=== PATIENT | male | born 1930 | race Caucasian/White ===

== ENCOUNTER 2016-06-22 15:54 | Observation (INO) | payer MEDICARE, BC ==
[2016-06-22] MEDS ORDERED: IPRATROPIUM-ALBUTEROL 3 ML NEB INHALATION STA (16:09)
[2016-06-22] MEDS ORDERED: methylPREDNISolone SOD SUCCI 125 MG/2 ML VIAL IV STA (16:09)
[2016-06-22] MEDS ORDERED: SODIUM CHLORIDE 0.9% 1,000 ML IV STA (16:09)
--- NOTE | 2016-06-22 16:15 | ED ---
SOB HPI - General Chief Complaint: Shortness of Breath Stated Complaint: SOB, Weakness Time Seen by Provider: 06/22/16 16:00 Source: patient, EMS, RN notes reviewed Mode of arrival: EMS Limitations: no limitations - History of Present Illness Initial Comments: This is a 86-year-old male who is brought in by EMS for evaluation for shortness of breath and weakness. He states he has been short of breath for about a week or so no reported fevers chills or sweats chest pain he does have a PEG tube and does not take nourishment by mouth. He has a phlegm production. MD Complaint: shortness of breath - Related Data Home Medications Medication Instructions Recorded Confirmed Montelukast [Singulair] 10 mg PO DAILY 12/13/14 06/22/16 Ascorbic Acid [Vitamin C] 500 mg PO DAILY 08/17/15 06/22/16 Fluticasone/Salmeterol [Advair 1 puff INHALATION RT-BID 10/28/15 06/22/16 250-50 Diskus] Aspirin 325 mg PO DAILY 06/22/16 06/22/16 Lisinopril [Zestril] 2.5 mg PO DAILY 06/22/16 06/22/16 Metoclopramide [Reglan] 5 mg PO ACHS 06/22/16 06/22/16 Mirtazapine [Remeron] 7.5 mg PO HS 06/22/16 06/22/16 Warfarin Sodium [Coumadin] 2 mg PO [id number] 06/22/16 06/22/16 Warfarin Sodium [Coumadin] 4 mg PO SUTH 06/22/16 06/22/16 predniSONE 2.5 mg PO DAILY 06/22/16 06/22/16 Previous Rx's Medication Instructions Recorded Ipratropium-Albuterol Nebulize 3 ml INHALATION RT-QID ampul.neb 01/25/16 [Duoneb 0.5 mg-3 mg/3 ml Soln] Allergies Allergy/AdvReac Type Severity Reaction Status Date / Time alprazolam [From Xanax] Allergy Unknown Verified 01/20/16 16:58 baclofen Allergy Unknown Verified 01/20/16 16:58 Horse/Equine Containing Allergy Unknown Verified 01/20/16 16:58 Products sulfadiazine Allergy Unknown Verified 01/20/16 16:58 sulfamethoxazole Allergy Unknown Verified 06/22/16 16:43 [From Bactrim] trimethoprim [From Bactrim] Allergy Unknown Verified 06/22/16 16:43 Review of Systems ROS Statement: Those systems with pertinent positive or pertinent negative responses have been documented in the HPI. ROS Other: All systems not noted in ROS Statement are negative. Past Medical History Past Medical History: Atrial Fibrillation, Asthma, Coronary Artery Disease (CAD) , COPD, Hypertension, Syncope Additional Past Medical History / Comment(s): pacemaker, chronic atrial fibrillation, CVA, dysphagia currently receiving enteral feeding via PEG tube, dementia History of Any Multi-Drug Resistant Organisms: None Reported Past Surgical History: Heart Catheterization, Pacemaker Additional Past Surgical History / Comment(s): heart cath, pacemaker, PEG tube 2014 Past Anesthesia/Blood Transfusion Reactions: No Reported Reaction Additional Past Anesthesia/Blood Transfusion Reaction / Comment(s): confusion after anesthesia Type of Cardiac Device: Permanent Pacemaker Device Placement Date:: 2014 EZIO FREEMAN Past Psychological History: No Psychological Hx Reported Smoking Status: Former smoker Past Alcohol Use History: None Reported Additional Past Alcohol Use History / Comment(s): Pt reports smoking a pack a day for five years from 13years old to 18 years old Past Drug Use History: None Reported - Past Family History Mother Family Medical History: No Reported History Father Family Medical History: No Reported History General Exam - General Exam Comments Initial Comments: This is a well-developed well-nourished awake alert male Limitations: no limitations General appearance: alert, in no apparent distress Head exam: Present: atraumatic, normocephalic, normal inspection Eye exam: Present: normal appearance, PERRL, EOMI. Absent: scleral icterus, conjunctival injection, periorbital swelling ENT exam: Present: mucous membranes dry Neck exam: Present: normal inspection. Absent: tenderness, meningismus, lymphadenopathy Respiratory exam: Present: normal lung sounds bilaterally, wheezes, decreased breath sounds. Absent: respiratory distress, rales, rhonchi, stridor Cardiovascular Exam: Present: regular rate, normal rhythm, normal heart sounds. Absent: systolic murmur, diastolic murmur, rubs, gallop, clicks GI/Abdominal exam: Present: soft, normal bowel sounds, other (PEG tube in place) . Absent: distended, tenderness, guarding, rebound, rigid Extremities exam: Present: normal inspection, full ROM, normal capillary refill. Absent: tenderness, pedal edema, joint swelling, calf tenderness Back exam: Present: normal inspection Neurological exam: Present: alert, oriented X3, CN II-XII intact Psychiatric exam: Present: normal affect, normal mood Skin exam: Present: warm, dry, intact, normal color. Absent: rash Course Vital Signs 06/22/16 06/22/16 06/22/16 16:04 16:37 16:49 Temperature 96.9 F L Pulse Rate 73 56 L 62 Respiratory 18 Rate Blood Pressure 105/52 O2 Sat by Pulse 100 Oximetry 06/22/16 06/22/16 06/22/16 17:06 18:35 19:26 Temperature Pulse Rate 68 55 L 81 Respiratory 18 18 16 Rate Blood Pressure 103/54 101/56 121/65 O2 Sat by Pulse 100 98 100 Oximetry Medical Decision Making - Medical Decision Making Patient will be admitted as stated - Lab Data Result diagrams: 06/22/16 16:00 06/22/16 16:00 Lab Results 06/22/16 06/22/16 06/22/16 Range/Units 16:00 16:00 16:00 WBC 11.6 H (3.8-10.6) k/uL RBC 3.29 L (4.30-5.90) m/uL Hgb 9.8 L (13.0-17.5) gm/dL Hct 30.3 L (39.0-53.0) % MCV 92.2 (80.0-100.0) fL MCH 29.9 (25.0-35.0) pg MCHC 32.5 (31.0-37.0) g/dL RDW 18.8 H (11.5-15.5) % Plt Count 235 (150-450) k/uL Neutrophils % 68 % Lymphocytes % 15 % Monocytes % 8 % Eosinophils % 4 % Basophils % 1 % Neutrophils # 7.9 H (1.3-7.7) k/uL Lymphocytes # 1.7 (1.0-4.8) k/uL Monocytes # 0.9 (0-1.0) k/uL Eosinophils # 0.4 (0-0.7) k/uL Basophils # 0.1 (0-0.2) k/uL Hypochromasia Slight Anisocytosis Slight PT (9.0-12.0) sec INR (<1.1) APTT (22.0-30.0) sec Sodium 132 L (137-145) mmol/L Potassium 4.6 (3.5-5.1) mmol/L Chloride 96 L (98-107) mmol/L Carbon Dioxide 29 (22-30) mmol/L Anion Gap 7 mmol/L BUN 22 H (9-20) mg/dL Creatinine 0.73 (0.66-1.25) mg/dL Est GFR (MDRD) Af Amer >60 (>60 ml/min/1.73 sqM) Est GFR (MDRD) Non-Af >60 (>60 ml/min/1.73 sqM) Glucose 127 H (74-99) mg/dL Calcium 8.7 (8.4-10.2) mg/dL Magnesium 1.8 (1.6-2.3) mg/dL Total Bilirubin 0.4 (0.2-1.3) mg/dL AST 27 (17-59) U/L ALT 22 (21-72) U/L Alkaline Phosphatase 83 (38-126) U/L Total Creatine Kinase 69 (55-170) U/L CK-MB (CK-2) 1.2 (0.0-2.4) ng/mL CK-MB (CK-2) Rel Index 1.7 Troponin I <0.012 (0.000-0.034) ng/mL NT-Pro-B Natriuret Pep pg/mL Total Protein 6.1 L (6.3-8.2) g/dL Albumin 2.9 L (3.5-5.0) g/dL 06/22/16 06/22/16 Range/Units 16:00 16:00 WBC (3.8-10.6) k/uL RBC (4.30-5.90) m/uL Hgb (13.0-17.5) gm/dL Hct (39.0-53.0) % MCV (80.0-100.0) fL MCH (25.0-35.0) pg MCHC (31.0-37.0) g/dL RDW (11.5-15.5) % Plt Count (150-450) k/uL Neutrophils % % Lymphocytes % % Monocytes % % Eosinophils % % Basophils % % Neutrophils # (1.3-7.7) k/uL Lymphocytes # (1.0-4.8) k/uL Monocytes # (0-1.0) k/uL Eosinophils # (0-0.7) k/uL Basophils # (0-0.2) k/uL Hypochromasia Anisocytosis PT 12.1 H (9.0-12.0) sec INR 1.2 (<1.1) APTT 23.3 (22.0-30.0) sec Sodium (137-145) mmol/L Potassium (3.5-5.1) mmol/L Chloride (98-107) mmol/L Carbon Dioxide (22-30) mmol/L Anion Gap mmol/L BUN (9-20) mg/dL Creatinine (0.66-1.25) mg/dL Est GFR (MDRD) Af Amer (>60 ml/min/1.73 sqM) Est GFR (MDRD) Non-Af (>60 ml/min/1.73 sqM) Glucose (74-99) mg/dL Calcium (8.4-10.2) mg/dL Magnesium (1.6-2.3) mg/dL Total Bilirubin (0.2-1.3) mg/dL AST (17-59) U/L ALT (21-72) U/L Alkaline Phosphatase (38-126) U/L Total Creatine Kinase (55-170) U/L CK-MB (CK-2) (0.0-2.4) ng/mL CK-MB (CK-2) Rel Index Troponin I (0.000-0.034) ng/mL NT-Pro-B Natriuret Pep 2640 pg/mL Total Protein (6.3-8.2) g/dL Albumin (3.5-5.0) g/dL - EKG Data -: EKG Interpreted by Me (EKG shows a paced rhythm of 69 QRS 148 QT/QTC of 450/ [address] ST-T wave anai) - Radiology Data Radiology results: report reviewed (X-ray shows evidence of some improvement in left lower lobe infiltrate and effusion. He still very dyspneic however patient will be admitted for inpatient treatment), image reviewed Disposition Clinical Impression: Acute exacerbation of chronic obstructive airways disease Disposition: ADMITTED IP TO THIS HOSP Condition: Stable
[2016-06-22 16:25] LABS: Anisocytosis Slight; Aty Lym Flag Slight; Basophils # (A) 0.1 k/uL (0-0.2); Basophils % (A) 1 %; CH 29.3; Eosinophils # (A) 0.4 k/uL (0-0.7); Eosinophils % (A) 4 %; HCT 30.3 % (39.0-53.0); HDW 2.68; HGB 9.8 gm/dL (13.0-17.5); Hypochromasia Slight; Luc # (Auto) 0.61; Luc % (Auto) 5; Lymphocytes # (A) 1.7 k/uL (1.0-4.8); Lymphocytes % (A) 15 %; MCH 29.9 pg (25.0-35.0); MCHC 32.5 g/dL (31.0-37.0); MCV 92.2 fL (80.0-100.0); Mean Platelet Volume 8.2; Monocytes # (A) 0.9 k/uL (0-1.0); Monocytes % (A) 8 %; Neutrophils # (A) 7.9 k/uL (1.3-7.7); Neutrophils % (A) 68 %; RBC 3.29 m/uL (4.30-5.90); RDW 18.8 % (11.5-15.5); WBC 11.6 k/uL (3.8-10.6); WBC (Perox) 11.83
[2016-06-22 16:31] LABS: ALT 22 U/L (21-72); AST 27 U/L (17-59); Alkaline Phosphatase 83 U/L (38-126); Anion Gap 7 mmol/L; Blood Urea Nitrogen 22 mg/dL (9-20); Calcium 8.7 mg/dL (8.4-10.2); Carbon Dioxide 29 mmol/L (22-30); Chloride 96 mmol/L (98-107); Glucose 127 mg/dL (74-99); Magnesium 1.8 mg/dL (1.6-2.3); Non-African American GFR(MDRD) >60 (>60 ml/min/1.73 sqM); Potassium 4.6 mmol/L (3.5-5.1); Sodium 132 mmol/L (137-145); Total Bilirubin 0.4 mg/dL (0.2-1.3); Total Protein 6.1 g/dL (6.3-8.2)
[2016-06-22 16:40] LABS: Creatine Kinase 69 U/L (55-170)
[2016-06-22 16:42] LABS: INR 1.2 (<1.1); Partial Thromboplastin Time 23.3 sec (22.0-30.0); Prothrombin Time 12.1 sec (9.0-12.0)
[2016-06-22 16:53] LABS: Creatine Kinase MB 1.2 ng/mL (0.0-2.4); Troponin I <0.012 ng/mL (0.000-0.034)
--- NOTE | 2016-06-22 18:29 | XR ---
EXAMINATION TYPE: XR chest 2V DATE OF EXAM: 06/22/2016 6:19 PM COMPARISON: 01/25/2016 HISTORY: Short of breath TECHNIQUE: Frontal and lateral views of the chest are obtained. FINDINGS: There is some mild patchy infiltrate in the left lung. There is no heart failure. There is coarsening of interstitial markings. There is left axillary pacemaker with lead tip in the right daria tricle. There are chest leads. IMPRESSION: There is partial clearing of left pleural effusion and left lower lobe pneumonic infiltr ate compared to last exam. No gross heart failure. Mild pulmonary fibrotic changes. There is complete clearing of pleural fluid on the right side compared to last exam.
[2016-06-22] MEDS ORDERED: IPRATROPIUM-ALBUTEROL 3 ML NEB INHALATION SCH (20:00)
[2016-06-22] MEDS ORDERED: WARFARIN 2 MG TAB PO SCH (20:00)
[2016-06-22] MEDS: MIRTAZAPINE 15 MG TAB PO SCH (22:33)
[2016-06-22] MEDS: SODIUM CHLORIDE 0.9% 1,000 ML IV SCH (23:00)
[2016-06-23] MEDS ORDERED: IPRATROPIUM-ALBUTEROL 3 ML NEB INHALATION PRN (00:01)
[2016-06-23] MEDS: METOCLOPRAMIDE 5 MG TAB PO SCH ×5 (01:26→20:30)
[2016-06-23] MEDS: methylPREDNISolone SOD SUCCI 125 MG/2 ML VIAL IV SCH ×4 (01:34→18:10)
[2016-06-23 07:27] LABS: Glucose,Whole Blood 165 mg/dL (75-99)
[2016-06-23] MEDS: IPRATROPIUM-ALBUTEROL 3 ML NEB INHALATION SCH ×4 (08:25→20:51)
[2016-06-23] MEDS: INSULIN LISPRO (humaLOG) 300 UNIT/3 ML VIAL SQ SCH ×4 (09:23→21:27)
[2016-06-23 11:53] LABS: Glucose,Whole Blood 160 mg/dL (75-99)
[2016-06-23 12:11] VITALS: BMI 26.8
[2016-06-23] MEDS: LISINOPRIL 2.5 MG TAB PO SCH (12:27)
[2016-06-23] MEDS: ASCORBIC ACID 500 MG TAB PO SCH (12:27)
[2016-06-23] MEDS: ASPIRIN 325 MG TAB PO SCH (12:27)
[2016-06-23] MEDS: MONTELUKAST 10 MG TAB PO SCH (12:28)
[2016-06-23 12:48] LABS: Hemoglobin A1C 5.8 % (4.2-6.1)
--- NOTE | 2016-06-23 16:30 | HP ---
DATE OF ADMISSION: 06/22/2016 HISTORY AND PHYSICAL EXAMINATION/DISCHARGE SUMMARY: This dictation is both H&P and discharge summary. Patient is a very pleasant gentleman came in with complaints of shortness of breath, although his shortness of breath completely resolved at this point of time. Patient has a history of COPD and the patient has good air entry into bilateral lung soto. Patient uses 2 liters of oxygen at home and patient is saturating well at this time with home oxygen with the same amount of oxygen. The patient had a chest x-ray showed improving right-sided pleural effusion and along with right-sided infiltrate from his previous compared to the previous. The patient has improving pneumonia and patient is not short of breath. Patient is supposed to get his PEG tube replaced tomorrow which is leaking and patient's PEG tube site area appears to be red. There is possibility of mild cellulitis for which he should use doxycycline and patient will be discharged today. Will come back for the PEG tube replacement tomorrow. The patient's lungs are at his baseline. Patient is mildly hyponatremic. Patient is not getting anything through the PEG tube. We will put him on IV fluids until he is discharged at a lower rate. Patient denied any fever, chills. Patient denied any nausea or vomiting. REVIEW OF SYSTEMS: CONSTITUTIONAL: No fever, no malaise, no fatigue. HEENT: No recent visual problems or hearing problems. Denied any sore throat. CARDIOVASCULAR: No chest pain, orthopnea, PND, no palpitations, no syncope. PULMONARY: as described in history of present illness. Patient denied any orthopnea, PND. Patient does not have any chest pain. Patient denied any ( ) patient is complaining of cough with minimal cough with yellowish sputum production GASTROINTESTINAL: No diarrhea, no nausea, no vomiting, no abdominal pain. Normoactive bowel sounds. NEUROLOGICAL: No headaches, no weakness, no numbness. HEMATOLOGICAL: Denies any bleeding or petechiae. GENITOURINARY: Denies any burning micturition, frequency, or urgency. MUSCULOSKELETAL/RHEUMATOLOGICAL: Denies any joint pain, swelling, or any muscle pain. ENDOCRINE: Denies any polyuria or polydipsia. The rest of the 14 point review of systems is negative. Home medications include: 1. Montelukast. 2. Ascorbic acid. 3. Fluticasone. 4. Salmeterol. 5. Aspirin. 6. Lisinopril. 7. Metoclopramide. 8. Coumadin, which is being held at this point of time for ( ) Coumadin and prednisone Coumadin is being held at this point of time for PEG tube replacement/PEG tube exchange. ALLERGIES: ALLERGIC TO ALPRAZOLAM, BACLOFEN, BACTRIM. Past medical history is significant for atrial fibrillation, on Coumadin, anticoagulation COPD, coronary artery disease, hypertension, syncope. Patient had dementia. Patient has a pacemaker in the past. CVAs in the past after which patient ended up having enteral tube for feeding. Patient had a cardiac catheterization, pacemaker, permanent pacemaker. FAMILY HISTORY: Mother history and father history unknown. History is unknown, we are unable to obtain any ( ) at this time. PHYSICAL EXAMINATION: Temperature 97.5, pulse of 68, respiratory rate of 16, blood pressure is 137/63, saturating at 100% on 2 liters of O2 nasal cannula. GENERAL: The patient is alert and oriented x2, which is his baseline. HEENT: Pupils are round and equally reacting to light. EOMI. No scleral icterus. No conjunctival pallor. Normocephalic, atraumatic. No pharyngeal erythema. No thyromegaly. CARDIOVASCULAR: S1 and S2 present. No murmurs, rubs, or gallops. PULMONARY: Fairly good air into her lung soto. No wheezing was appreciated. No crackles appreciated ABDOMEN: Gastrointestinal: Patient's PEG tube site, insertion site has a little bit of redness. No rebound or rigidity, there may be cellulitis which I cannot completely exclude for which we are using doxycycline as mentioned earlier. MUSCULOSKELETAL: No joint swelling or deformity. EXTREMITIES: No cyanosis, clubbing, or pedal edema. NEUROLOGICAL: Gross neurological examination did not reveal any focal deficits. SKIN: No rashes. LABORATORY DATA: CBC and BMP are abnormal for elevated WBC count of 11,600, sodium of 132. ASSESSMENT AND PLAN: 1. Possibility of chronic obstructive pulmonary disease exacerbation. Patient is at his baseline. Patient will be discharged on a short steroid taper along with doxycycline as mentioned above which is going to help him with his possible cellulitis of the PEG tube site area. Patient can discharged today. Patient can be brought back for PEG tube replacement tomorrow. 2. Atrial fibrillation, rate controlled at this point of time. No further intervention regarding that and we will continue with home medications regarding that. 3. Coronary artery disease. 4. Hypertension. 5. Cerebrovascular accident in the past. 6. Possibility of minimal cellulitis around the PEG tube site area. Doxycycline should help with that as well. For the above mentioned chronic medical problems, we will go ahead and continue his home medications. Coumadin will be held for PEG tube replacement. Patient's primary care physician is Dr. Les Felton, a copy of dictation will be forwarded to him. This dictation is both H&P and discharge summary.
[2016-06-23] MEDS: DOXYCYCLINE 50 MG CAP PO SCH ×2 (16:37→20:30)
[2016-06-23 16:55] LABS: Glucose,Whole Blood 151 mg/dL (75-99)
[2016-06-23] MEDS ORDERED: WARFARIN 2 MG TAB PO SCH (18:00)
[2016-06-23] MEDS: SODIUM CHLORIDE 0.9% 1,000 ML IV SCH (20:29)
[2016-06-23] MEDS: MIRTAZAPINE 15 MG TAB PO SCH (20:31)
[2016-06-23 21:32] LABS: Glucose,Whole Blood 136 mg/dL (75-99)
[2016-06-24] MEDS: methylPREDNISolone SOD SUCCI 125 MG/2 ML VIAL IV SCH ×2 (06:21)
[2016-06-24] MEDS ORDERED: PROPOFOL 10 MG/ML 20 ML VIAL IV ONE (07:32)
[2016-06-24] MEDS ORDERED: IV FLUID CONTINUATION 1,000 ML IV ONE (07:32)
[2016-06-24] MEDS ORDERED: LIDOCAINE 1% INJ 10MG/ML (20 ML MDV) ONE (07:32)
[2016-06-24] MEDS: IPRATROPIUM-ALBUTEROL 3 ML NEB INHALATION SCH (07:41)
[2016-06-24] MEDS: DOXYCYCLINE 50 MG CAP PO SCH (07:48)
[2016-06-24] MEDS: MONTELUKAST 10 MG TAB PO SCH (07:48)
[2016-06-24] MEDS: ASCORBIC ACID 500 MG TAB PO SCH (07:48)
[2016-06-24] MEDS: INSULIN LISPRO (humaLOG) 300 UNIT/3 ML VIAL SQ SCH (07:48)
[2016-06-24] MEDS: METOCLOPRAMIDE 5 MG TAB PO SCH (07:48)
[2016-06-24] MEDS: LISINOPRIL 2.5 MG TAB PO SCH (07:48)
[2016-06-24] MEDS: ASPIRIN 325 MG TAB PO SCH (07:48)
[2016-06-24 07:51] VITALS: BP 109/55; PULSE 69; RESP 19; TEMP 96.5
--- NOTE | 2016-06-24 07:56 | P.PCN ---
Date of Procedure: 06/24/16 Procedure(s) Performed: BRIEF HISTORY: Patient is a 86-year-old, pleasant, white male, scheduled for an upper endoscopy with a PEG tube replacement today. He had prior history of stroke and the PEG tube placement 2 years ago. He is admitted to the hospital with pneumonia and presently on broad spectrum antibiotics. Because of the worsening dysphagia is also scheduled for an upper endoscopy today. PROCEDURE PERFORMED: Esophagogastroduodenoscopy with PEG tube replacement. PREOPERATIVE DIAGNOSIS: Dysphagia/prior history of strokes/PEG tube malfunction. IV sedation per anesthesia. PROCEDURE: After informed consent was obtained, the patient was brought into the endoscopy unit. IV conscious sedation was administered by Anesthesia under continuous monitoring. Initially the Olympus GIF-140 video endoscope was inserted into the mouth. Esophagus intubated without any difficulty. It was gradually advanced into the stomach and duodenum and carefully examined. The bulb and the second part of the duodenum appeared normal. The scope at this time was withdrawn to the stomach, adequately insufflated with air, and upon careful examination, mucosa of the antrum, body, cardia and the fundus appeared normal. The internal bumper of the previously placed PEG tube was seen. At this time with gentle traction the PEG tube was pulled out of the anterior abdominal wall without any difficulty. A 20-Welsh non-balloon PEG tube was advanced to the existing gastrostomy site and the internal bumper appeared to be in secure position. Next and bumper was placed at 3 cm rox. The scope was then withdrawn into the esophagus. Small hiatal hernia noted. The GE junction was located at 39 cm from the incisors. The esophagus appeared normal. There were no erosions or ulcerations seen and the patient tolerated the procedure well. IMPRESSION: 1. Successful 20-Welsh non-balloon PEG tube replacement as described above. 2. Small hiatal hernia. RECOMMENDATIONS: The findings of this examination were discussed with the patient as well as his family. The PEG tube can be used for feeding today.
[2016-06-24 08:27] LABS: Glucose,Whole Blood 146 mg/dL (75-99)
== END 2016-06-24 11:24 | disposition home health service (06) ==
LOC: EC 15:54 → INTOOBSV 19:44 → 4MS4W 19:44
PROVIDERS: ADMIT Hospitalist; ATTEND Hospitalist
DX: K94.23 Gastrostomy malfunction (principal); J18.9 Pneumonia, unspecified organism; R13.10 Dysphagia, unspecified; I25.10 Atherosclerotic heart disease of native coronary artery without angina pectoris; J44.9 Chronic obstructive pulmonary disease, unspecified; I10 Essential (primary) hypertension; I48.2 Chronic atrial fibrillation; E87.1 Hypo-osmolality and hyponatremia; Z99.81 Dependence on supplemental oxygen; Z87.891 Personal history of nicotine dependence; Z79.899 Other long term (current) drug therapy; Z79.82 Long term (current) use of aspirin; Z79.01 Long term (current) use of anticoagulants; Z79.51 Long term (current) use of inhaled steroids; Z79.52 Long term (current) use of systemic steroids; Z88.2 Allergy status to sulfonamides; Z88.8 Allergy status to other drugs, medicaments and biological substances; Z91.048 Other nonmedicinal substance allergy status; Z86.73 Personal history of transient ischemic attack (TIA), and cerebral infarction without residual deficits; Z95.0 Presence of cardiac pacemaker
CPT/HCPCS: 96374; 96361 ×4; 36415; 94640 ×3; 93005; 83880; 80053; 83036; 82550; 82553; 83735; 84484; 85025; 85610; 85730; 71020; 43246; 99285; G0378 ×3; J2930 ×3; J2001; J2704; 44799; 96376

== ENCOUNTER 2016-06-25 10:44 | Inpatient (IN) | payer MEDICARE, BC ==
--- NOTE | 2016-06-25 10:51 | ED ---
Altered Mental Status HPI - General Stated Complaint: Altered Mental Status Time Seen by Provider: 06/25/16 10:44 Source: patient, EMS, RN notes reviewed, old records reviewed Mode of arrival: EMS - History of Present Illness Initial Comments: This is an 78-year-old male was brought in by EMS for evaluation for combative behavior. Currently he was swinging at people being combative and uncooperative. EMS was called he did notice his oxygen tube was kinked. When it was unkinked it is oxygen level went from the high 80s up to a more normal level and became unresponsive. Patient himself complains no fevers chills nausea vomiting sweats or other symptoms. He was just released from the hospital within the last several days after being admitted for a COPD exacerbation MD Complaint: other - Related Data Home Medications Medication Instructions Recorded Confirmed Montelukast [Singulair] 10 mg PO DAILY 12/13/14 06/25/16 Ascorbic Acid [Vitamin C] 500 mg PO DAILY 08/17/15 06/25/16 Fluticasone/Salmeterol [Advair 1 puff INHALATION RT-BID 10/28/15 06/25/16 250-50 Diskus] Aspirin 325 mg PO DAILY 06/22/16 06/25/16 Lisinopril [Zestril] 2.5 mg PO DAILY 06/22/16 06/25/16 Metoclopramide [Reglan] 5 mg PO ACHS 06/22/16 06/25/16 Mirtazapine [Remeron] 7.5 mg PO HS PRN 06/22/16 06/25/16 predniSONE 2.5 mg PO DAILY 06/22/16 06/25/16 predniSONE See Taper PO DAILY 06/25/16 06/25/16 Previous Rx's Medication Instructions Recorded Ipratropium-Albuterol Nebulize 3 ml INHALATION RT-QID ampul.neb 01/25/16 [Duoneb 0.5 mg-3 mg/3 ml Soln] Budesonide-Formot 160-4.5 Mcg 2 puff INHALATION BID #1 inhaler 06/23/16 [Symbicort 160-4.5 Mcg Inhaler] Doxycycline Hyclate 100 mg PO BID #10 tab 06/23/16 Allergies Allergy/AdvReac Type Severity Reaction Status Date / Time alprazolam [From Xanax] Allergy Unknown Verified 06/25/16 13:41 baclofen Allergy Unknown Verified 06/25/16 13:41 Horse/Equine Containing Allergy Unknown Verified 06/25/16 13:41 Products sulfadiazine Allergy Unknown Verified 06/25/16 13:41 sulfamethoxazole Allergy Unknown Verified 06/25/16 13:41 [From Bactrim] trimethoprim [From Bactrim] Allergy Unknown Verified 06/25/16 13:41 Review of Systems ROS Statement: Those systems with pertinent positive or pertinent negative responses have been documented in the HPI. ROS Other: All systems not noted in ROS Statement are negative. Past Medical History Past Medical History: Atrial Fibrillation, Asthma, Coronary Artery Disease (CAD) , COPD, Dementia, Hypertension, Memory Impairment, Syncope Additional Past Medical History / Comment(s): pacemaker, chronic atrial fibrillation, CVA,chronic dysphagia(?past aspirative pne) currently receiving enteral feeding via PEG tube, dementia History of Any Multi-Drug Resistant Organisms: None Reported Past Surgical History: Heart Catheterization, Pacemaker Additional Past Surgical History / Comment(s): heart cath, pacemaker, PEG tube 2014 Past Anesthesia/Blood Transfusion Reactions: No Reported Reaction Additional Past Anesthesia/Blood Transfusion Reaction / Comment(s): confusion after anesthesia Type of Cardiac Device: Permanent Pacemaker Device Placement Date:: 2014 EZIO FREEMAN Past Psychological History: No Psychological Hx Reported Smoking Status: Former smoker Past Alcohol Use History: None Reported Additional Past Alcohol Use History / Comment(s): Pt reports smoking a pack a day for five years from 13years old to 18 years old Past Drug Use History: None Reported - Past Family History Mother Family Medical History: No Reported History Father Family Medical History: No Reported History General Exam - General Exam Comments Initial Comments: This is a well-developed well-nourished awake alert male General appearance: alert, in no apparent distress Head exam: Present: atraumatic, normocephalic, normal inspection Eye exam: Present: normal appearance, PERRL, EOMI. Absent: scleral icterus, conjunctival injection, periorbital swelling ENT exam: Present: normal exam, mucous membranes moist Neck exam: Present: normal inspection. Absent: tenderness, meningismus, lymphadenopathy Respiratory exam: Present: normal lung sounds bilaterally. Absent: respiratory distress, wheezes, rales, rhonchi, stridor Cardiovascular Exam: Present: regular rate, normal rhythm, normal heart sounds. Absent: systolic murmur, diastolic murmur, rubs, gallop, clicks GI/Abdominal exam: Present: soft, normal bowel sounds, other (PEG tube in place minimal erythema seen to the site.). Absent: distended, tenderness, guarding, rebound, rigid Extremities exam: Present: normal inspection, full ROM, normal capillary refill. Absent: tenderness, pedal edema, joint swelling, calf tenderness Back exam: Present: normal inspection Neurological exam: Present: alert, oriented X3, CN II-XII intact Psychiatric exam: Present: normal affect, normal mood Skin exam: Present: warm, dry, intact, other (Does demonstrate ecchymosis and some bruising to the extremities). Absent: rash Course Vital Signs 06/25/16 06/25/16 06/25/16 10:51 13:56 15:56 Temperature 97.4 F L 98.2 F Pulse Rate 70 67 57 L Respiratory 15 18 12 Rate Blood Pressure 168/67 170/73 O2 Sat by Pulse 100 100 100 Oximetry - Reevaluation(s) Reevaluation #1: 06/25/16 16:23 I did discuss findings with the patient and family patient explained to me that he felt his son was using drugs and his family were using drugs. He also stated other reports) he has some. This is true. He will need admission with placement. The elevated white blood cell count was felt to be secondary to the activity. Medical Decision Making - Lab Data Result diagrams: 06/25/16 11:10 06/25/16 11:10 Lab Results 06/25/16 06/25/16 06/25/16 Range/Units 11:10 11:10 11:10 WBC 19.7 H (3.8-10.6) k/uL RBC 3.56 L (4.30-5.90) m/uL Hgb 10.4 L (13.0-17.5) gm/dL Hct 33.0 L (39.0-53.0) % MCV 92.8 (80.0-100.0) fL MCH 29.2 (25.0-35.0) pg MCHC 31.5 (31.0-37.0) g/dL RDW 18.8 H (11.5-15.5) % Plt Count 279 (150-450) k/uL Neutrophils % 85 % Lymphocytes % 6 % Monocytes % 7 % Eosinophils % 0 % Basophils % 0 % Neutrophils # 16.8 H (1.3-7.7) k/uL Lymphocytes # 1.1 (1.0-4.8) k/uL Monocytes # 1.3 H (0-1.0) k/uL Eosinophils # 0.0 (0-0.7) k/uL Basophils # 0.0 (0-0.2) k/uL Hypochromasia Slight Anisocytosis Slight Sodium 140 (137-145) mmol/L Potassium 4.5 (3.5-5.1) mmol/L Chloride 104 (98-107) mmol/L Carbon Dioxide 27 (22-30) mmol/L Anion Gap 9 mmol/L BUN 39 H (9-20) mg/dL Creatinine 0.80 (0.66-1.25) mg/dL Est GFR (MDRD) Af Amer >60 (>60 ml/min/1.73 sqM) Est GFR (MDRD) Non-Af >60 (>60 ml/min/1.73 sqM) Glucose 119 H (74-99) mg/dL Calcium 9.5 (8.4-10.2) mg/dL Magnesium 2.5 H (1.6-2.3) mg/dL Total Bilirubin 0.6 (0.2-1.3) mg/dL AST 30 (17-59) U/L ALT 31 (21-72) U/L Alkaline Phosphatase 75 (38-126) U/L Total Creatine Kinase 38 L (55-170) U/L CK-MB (CK-2) 1.3 (0.0-2.4) ng/mL CK-MB (CK-2) Rel Index 3.4 Total Protein 6.5 (6.3-8.2) g/dL Albumin 3.4 L (3.5-5.0) g/dL - EKG Data -: EKG Interpreted by Me (And pacemaker rate of 59 QRS 122 QT/QTC of 462/457 evidence of A. fib with ) Disposition Clinical Impression: Encephalopathy, Failure to thrive, Leukocytosis (leucocytosis) Disposition: ADMITTED IP TO THIS HOSP Condition: Stable
[2016-06-25 11:25] LABS: Anisocytosis Slight; Basophils % (A) 0 %; CH 29.2; CHCM 31.7; Eosinophils % (A) 0 %; HGB 10.4 gm/dL (13.0-17.5); Hypochromasia Slight; Luc # (Auto) 0.44; Luc % (Auto) 2; Lymphocytes # (A) 1.1 k/uL (1.0-4.8); Lymphocytes % (A) 6 %; MCH 29.2 pg (25.0-35.0); MCHC 31.5 g/dL (31.0-37.0); MCV 92.8 fL (80.0-100.0); Mean Platelet Volume 8.4; Monocytes # (A) 1.3 k/uL (0-1.0); Monocytes % (A) 7 %; Neutrophils # (A) 16.8 k/uL (1.3-7.7); Neutrophils % (A) 85 %; RBC 3.56 m/uL (4.30-5.90); RDW 18.8 % (11.5-15.5); WBC 19.7 k/uL (3.8-10.6); WBC (Perox) 20.11
--- NOTE | 2016-06-25 11:36 | XR ---
EXAMINATION TYPE: XR chest 2V DATE OF EXAM: 06/25/2016 11:25 AM COMPARISON: 06/22/2016 TECHNIQUE: PA and lateral views submitted. HISTORY: Cough and congestion FINDINGS: Underlying COPD and chronic interstitial lung disease suspected with cardiac device noted. Diffuse osteopenia and arthropathy of the shoulder noted. There is left lower lobe infiltrate and small effusion. Tiny right pleural effusion also appears stab le. IMPRESSION: 1. Tiny bilateral pleural effusions appear stable 2. Correlate for chronic interstitial lung disease or fibrosis 3. Stable patchy left perihilar infiltrate. Follow to resolution.
[2016-06-25 11:50] LABS: ALT 31 U/L (21-72); AST 30 U/L (17-59); Alkaline Phosphatase 75 U/L (38-126); Anion Gap 9 mmol/L; Blood Urea Nitrogen 39 mg/dL (9-20); Calcium 9.5 mg/dL (8.4-10.2); Carbon Dioxide 27 mmol/L (22-30); Chloride 104 mmol/L (98-107); Glucose 119 mg/dL (74-99); Magnesium 2.5 mg/dL (1.6-2.3); Non-African American GFR(MDRD) >60 (>60 ml/min/1.73 sqM); Potassium 4.5 mmol/L (3.5-5.1); Sodium 140 mmol/L (137-145); Total Bilirubin 0.6 mg/dL (0.2-1.3); Total Protein 6.5 g/dL (6.3-8.2)
[2016-06-25 11:57] LABS: Creatine Kinase MB 1.3 ng/mL (0.0-2.4)
[2016-06-25] MEDS ORDERED: SODIUM CHLORIDE 0.9% 1,000 ML IV STA (12:42)
[2016-06-25] MEDS ORDERED: NALOXONE 0.4 MG/ML 1 ML VIAL IV PRN (16:25)
[2016-06-25] MEDS ORDERED: MIRTAZAPINE 15 MG TAB PO PRN (16:29)
[2016-06-25] MEDS: SODIUM CHLORIDE 0.9% 1,000 ML IV SCH (16:34)
[2016-06-25] MEDS: SYMBICORT 160-4.5 MCG INHALER INHALATION SCH (19:59)
[2016-06-25] MEDS: IPRATROPIUM-ALBUTEROL 3 ML NEB INHALATION SCH (19:59)
[2016-06-25] MEDS ORDERED: SYMBICORT 80-4.5 MCG INHALER INHALATION SCH (20:00)
[2016-06-25] MEDS: DOXYCYCLINE 50 MG CAP PO SCH (20:06)
[2016-06-25] MEDS: METOCLOPRAMIDE 5 MG TAB PO SCH ×2 (20:07)
[2016-06-26] MEDS: SODIUM CHLORIDE 0.9% 1,000 ML IV SCH (05:35)
[2016-06-26] MEDS: IPRATROPIUM-ALBUTEROL 3 ML NEB INHALATION SCH ×4 (07:44→20:43)
[2016-06-26] MEDS: SYMBICORT 160-4.5 MCG INHALER INHALATION SCH (07:44)
[2016-06-26] MEDS: METOCLOPRAMIDE 5 MG TAB PO SCH ×4 (08:53→22:02)
[2016-06-26] MEDS: LISINOPRIL 2.5 MG TAB PO SCH (08:53)
[2016-06-26] MEDS: DOXYCYCLINE 50 MG CAP PO SCH (08:54)
[2016-06-26] MEDS: MONTELUKAST 10 MG TAB PO SCH (08:54)
[2016-06-26] MEDS: predniSONE 2.5 MG TAB PO SCH (08:54)
[2016-06-26] MEDS ORDERED: ASPIRIN 325 MG TAB PO SCH (09:00)
[2016-06-26] MEDS: ASCORBIC ACID 500 MG TAB PO SCH (12:09)
[2016-06-26] MEDS: CLINDAMYCIN 300 MG in DEXTROSE 5% IN WATER 50 ML IVPB SCH ×2 (18:41)
--- NOTE | 2016-06-26 19:08 | HP ---
DATE OF ADMISSION: 06/25/2016 PRESENTING COMPLAINT: Acute confusion. HISTORY OF PRESENTING COMPLAINT: This is an 86-year-old patient who was discharged from the hospital, follows with Dr. Felton. Patient has a history of home oxygen. Chronic stable conditions include chronic dysphagia with recurrent aspiration confirmed by speech evaluation, atrial fibrillation, coronary artery disease, hypertension, some dementia with strokes in the past, pacemaker. Patient was discharged from the hospital 2 days ago with replacement of the PEG tube. Patient does get some ice chips at home. Patient presented with acute agitation, pulse ox was noted to be down to 80% in the ER. Chest x-ray shows some infiltrates and noted to have elevated white count. Patient himself because of dementia cannot really give much of a history but can answer simple questions. REVIEW OF SYSTEMS: CONSTITUTIONAL: Tired. HEENT: Decreased hearing. RESPIRATORY: Slight cough. CARDIOVASCULAR: None. GASTROINTESTINAL: Chronic dysphagia, PEG tube in place. GENITOURINARY: None. MUSCULOSKELETAL: None. DERMATOLOGICAL: Healed decubitus ulcers. HEMATOLOGICAL: None. LYMPHATICS: None. PSYCHIATRY: Occasional confusion. NEUROLOGICAL: Generalized weakness. PAST HISTORY: Home oxygen 2 L, chronic dysphagia, atrial fibrillation, coronary artery disease, hypertension, dementia, stroke, permanent pacemaker, severe persistent asthma. PAST SURGICAL HISTORY: Cardiac cath, pacemaker, PEG tube placement. SOCIAL HISTORY: The patient only smoked for 5 years age until the age of [age] years old. No alcohol, was living with his son. FAMILY HISTORY: Patient cannot recall. HOME MEDICATIONS: 1. Reglan 5 mg p.o. q.a.c. and at bedtime. 2. Prednisone taper. 3. Singulair 10 mg p.o. daily. 4. Remeron 7.5 p.o. q.h.s. p.r.n. 5. Zestril 2.5 mg daily. 6. DuoNeb q.i.d. 7. Doxycycline 100 mg b.i.d. for recent cellulitis of the PEG tube. 8. Symbicort 160/4.5 two puffs b.i.d. 9. Aspirin 325 p.o. daily. 10. Vitamin C 500 mg p.o. daily. Allergies to XANAX, BACLOFEN, HORSE/EQUINE-CONTAINING PRODUCTS, SULFADIAZINE, BACTRIM. On examination, vital signs on presentation: Temperature 97.4, pulse 70, respirations 16, blood pressure one 168/67, pulse ox found to be 80% in the ER. GENERAL APPEARANCE: Average build, lying in bed, tired-appearing. EYES: Pupils equal. Conjunctivae normal. HEENT: External appearance of nose and ears normal. Oral cavity with dry mucous membrane. NECK: JVD not raised. Mass not palpable. Respiratory effort normal. LUNGS: Diminished breath sounds. CARDIOVASCULAR: Heart sound irregular. No edema. ABDOMEN: Soft, nontender. Liver and spleen not palpable. LYMPHATIC: No lymph node palpable in neck or axilla. PSYCHIATRY: Patient can also some simple questions. NEUROLOGICAL: Pupils equal. No facial asymmetry, able to lift both the arms up off the bed, able to lift his legs about 40 degrees off the bed. DERMATOLOGICAL: Some scattered bruising. ABDOMEN: PEG tube in place. INVESTIGATIONS: White count 19.7, hemoglobin 10.4. Potassium 4.5. Chest x-ray reports some infiltrates. ASSESSMENT: 1. Possible aspiration pneumonia with acute hypoxic respiratory failure, present on admission as documented in the ER and elevated white count of 19.7, having gone up from 11.6. 2. Chronic hypoxic respiratory failure on 2 L of oxygen at home. 3. Chronic dysphagia, probably from prior stroke. Patient is a high risk of aspiration. 4. Persistent atrial fibrillation. 5. Coronary artery disease with prior history of stent. 6. Essential hypertension. 7. Permanent chronic pacemaker. 8. Severe persistent asthma. 9. Acute delirium on presentation, probably from pneumonia. PLAN: Patient is put on nebulized bronchodilators, IV clindamycin, PEG tube feeding is to resume. Patient will be made n.p.o. Fundraising Officer was consulted, Physical Therapy involved. No family is at the bedside.
[2016-06-26] MEDS: BUDESONIDE 0.5 MG/2 ML NEBU INHALATION SCH (20:43)
[2016-06-27] MEDS: CLINDAMYCIN 300 MG in DEXTROSE 5% IN WATER 50 ML IVPB SCH ×10 (00:14→23:15)
[2016-06-27] MEDS: IPRATROPIUM-ALBUTEROL 3 ML NEB INHALATION SCH ×4 (07:14→19:48)
[2016-06-27] MEDS: BUDESONIDE 0.5 MG/2 ML NEBU INHALATION SCH ×2 (07:14→19:48)
[2016-06-27] MEDS: LISINOPRIL 2.5 MG TAB PO SCH (09:06)
[2016-06-27] MEDS: MONTELUKAST 10 MG TAB PO SCH (09:06)
[2016-06-27] MEDS: ASPIRIN 81 MG CHEW PO SCH (09:06)
[2016-06-27] MEDS: METOCLOPRAMIDE 5 MG TAB PO SCH ×4 (09:07→20:03)
[2016-06-27] MEDS: predniSONE 2.5 MG TAB PO SCH (09:07)
[2016-06-27 09:47] VITALS: BMI 24.8
[2016-06-27] MEDS: ASCORBIC ACID 500 MG TAB PO SCH (12:15)
[2016-06-28] MEDS: CLINDAMYCIN 300 MG in DEXTROSE 5% IN WATER 50 ML IVPB SCH ×8 (06:16→23:40)
[2016-06-28 08:07] LABS: Anion Gap 5 mmol/L; Blood Urea Nitrogen 20 mg/dL (9-20); Calcium 8.4 mg/dL (8.4-10.2); Carbon Dioxide 28 mmol/L (22-30); Chloride 110 mmol/L (98-107); Glucose 106 mg/dL (74-99); Non-African American GFR(MDRD) >60 (>60 ml/min/1.73 sqM); Potassium 4.3 mmol/L (3.5-5.1); Sodium 143 mmol/L (137-145)
[2016-06-28] MEDS: IPRATROPIUM-ALBUTEROL 3 ML NEB INHALATION SCH ×4 (08:10→21:23)
[2016-06-28] MEDS: BUDESONIDE 0.5 MG/2 ML NEBU INHALATION SCH ×2 (08:10→21:23)
[2016-06-28] MEDS: METOCLOPRAMIDE 5 MG TAB PO SCH ×4 (08:36→21:38)
[2016-06-28 08:38] LABS: Anisocytosis Slight; Basophils % (A) 0 %; CH 28.6; Eosinophils # (A) 0.8 k/uL (0-0.7); Eosinophils % (A) 7 %; HCT 31.5 % (39.0-53.0); HGB 9.6 gm/dL (13.0-17.5); Hypochromasia Marked; Luc # (Auto) 0.22; Luc % (Auto) 2; Lymphocytes # (A) 1.5 k/uL (1.0-4.8); Lymphocytes % (A) 13 %; MCH 29.2 pg (25.0-35.0); MCHC 30.5 g/dL (31.0-37.0); MCV 95.6 fL (80.0-100.0); Macrocytosis Slight; Mean Platelet Volume 8.2; Monocytes # (A) 0.8 k/uL (0-1.0); Monocytes % (A) 7 %; Neutrophils # (A) 7.9 k/uL (1.3-7.7); Neutrophils % (A) 70 %; RDW 18.4 % (11.5-15.5); WBC 11.2 k/uL (3.8-10.6); WBC (Perox) 11.33
[2016-06-28] MEDS: predniSONE 2.5 MG TAB PO SCH (08:38)
[2016-06-28] MEDS: ASPIRIN 81 MG CHEW PO SCH (08:38)
[2016-06-28] MEDS: LISINOPRIL 2.5 MG TAB PO SCH (08:38)
[2016-06-28] MEDS: MONTELUKAST 10 MG TAB PO SCH (08:38)
--- NOTE | 2016-06-28 09:33 | PN ---
DATE OF SERVICE: 06/27/2016 PRESENTING COMPLAINT: Cough. INTERVAL HISTORY: This is a patient who presented with acute delirium and aspiration pneumonia. Patient has got PEG tube feeding, has got chronic dysphagia being n.p.o. The patient is pretty much resting in bed, has got a slight cough. Tube feeding continues. Review of systems done for constitutional, cardiovascular, GI, pulmonary; relevant findings as above. Current medications are reviewed that include IV clindamycin. On examination, temperature 97.3, pulse 52, respirations 16, blood pressure 149/65, pulse ox 100% on 2 L. GENERAL APPEARANCE: Lying in the bed. Tired. EYES: Pupils equal. Conjunctivae normal. NECK: JVD not raised. Mass not palpable. RESPIRATORY: Effort normal. LUNGS: Diminished breath sounds. CARDIOVASCULAR: Heart sounds irregular. No edema. ABDOMEN: Soft, nontender. PEG tube in place. PSYCHIATRY: Patient is able to answer simple questions. INVESTIGATIONS: No blood work from today. ASSESSMENT: 1. Possible aspiration pneumonia with acute hypoxic respiratory failure, present on admission as documented in the ER attendings notes with some clinical improvement. 2. Chronic hypoxic respiratory failure on 2 L oxygen at home. 3. Chronic dysphagia, probably from prior stroke. Patient is a high risk of aspiration, is n.p.o. 4. Persistent atrial fibrillation. 5. Coronary artery disease with prior history of stent. 6. Essential hypertension. 7. Permanent chronic pacemaker. 8. Severe persistent asthma. 9. Acute delirium on presentation, probably from pneumonia with some improvement. PLAN: Continue current medication and treatment plan. Patient may need more of assisted setup. Have the sr. social media & mobile manager look at that. I did convey this to the nurse.
[2016-06-28] MEDS: ASCORBIC ACID 500 MG TAB PO SCH (13:05)
[2016-06-28] MEDS: BACITRACIN OINT 1 EACH PACKET TOPICAL SCH ×2 (17:12→21:38)
--- NOTE | 2016-06-28 23:02 | PN ---
DATE OF SERVICE: 06/28/2016 PRESENTING COMPLAINT: Cough. INTERVAL HISTORY: This is a patient that presented with acute delirium and aspiration pneumonia; doing better, comfortable, answering simple questions. Tube feeding continues, otherwise is n.p.o. 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 Review of systems done for constitutional, cardiovascular, GI, pulmonary; relevant findings as above. Current medications are reviewed that include IV clindamycin. On examination, temperature 97.5, pulse 54, respirations 16, blood pressure 171/74, pulse ox 100% on 2L. Earlier, blood pressure was lower. EYES: Pupils equal. Conjunctivae normal. NECK: JVD not raised. Mass not palpable. RESPIRATORY: Effort normal. LUNGS: Diminished breath sounds. CARDIOVASCULAR: Heart sounds regular. No edema. ABDOMEN: Soft, nontender. PEG tube in place. DERMATOLOGICAL: Some redness around the PEG tube site. PSYCHIATRY: Patient able to answer simple questions. INVESTIGATIONS: White count 11.2, hemoglobin 9.6. Potassium 4.3. ASSESSMENT: 1. Possible aspiration pneumonia with acute hypoxic respiratory failure, present on admission as documented in the emergency room notes with clinical improvement. 2. Chronic hypoxic respiratory failure on 2L of oxygen at home. 3. Chronic dysphagia, probably from prior stroke. The patient is a high risk of aspiration, is n.p.o. 4. Persistent atrial fibrillation. 5. Coronary artery disease with prior history of stent. 6. Essential hypertension. 7. Permanent coronary pacemaker. 8. Severe persistent asthma. 9. Acute delirium on presentation, probably from pneumonia, with clinical improvement. 10. Cellulitis at the percutaneous endoscopic gastrostomy tube site, which was also present on admission. Patient had received antibiotics as an outpatient for the same until admission. 11. CODE STATUS: DO NOT RESUSCITATE. PLAN: Continue current medication and treatment plan. Looking at ECF placement. Will use bacitracin 3 times at the PEG tube site. Overall prognosis guarded.
[2016-06-29] MEDS: CLINDAMYCIN 300 MG in DEXTROSE 5% IN WATER 50 ML IVPB SCH ×4 (05:56→12:37)
[2016-06-29 07:46] VITALS: BP 147/68; RESP 16; TEMP 97.9
[2016-06-29] MEDS: BACITRACIN OINT 1 EACH PACKET TOPICAL SCH (08:49)
[2016-06-29] MEDS: LISINOPRIL 2.5 MG TAB PO SCH (08:50)
[2016-06-29] MEDS: METOCLOPRAMIDE 5 MG TAB PO SCH ×2 (08:50→12:38)
[2016-06-29] MEDS: ASPIRIN 81 MG CHEW PO SCH (08:50)
[2016-06-29] MEDS: predniSONE 2.5 MG TAB PO SCH (08:50)
[2016-06-29] MEDS: MONTELUKAST 10 MG TAB PO SCH (08:50)
[2016-06-29] MEDS: IPRATROPIUM-ALBUTEROL 3 ML NEB INHALATION SCH ×2 (09:05→12:50)
[2016-06-29] MEDS: BUDESONIDE 0.5 MG/2 ML NEBU INHALATION SCH (09:06)
[2016-06-29 09:09] VITALS: PULSE 72
[2016-06-29] MEDS: ASCORBIC ACID 500 MG TAB PO SCH (12:37)
--- NOTE | 2016-06-29 14:21 | DS ---
DATE OF ADMISSION: 06/25/2016 DATE OF DISCHARGE: 06/29/2016 FINAL DIAGNOSES: 1. Possible aspiration pneumonia with acute hypoxic respiratory failure, present on admission. 2. Chronic hypoxic respiratory failure including oxygen at home. 3. Chronic dysphagia, probably from prior stroke. Patient is high risk for aspiration and is n.p.o. 4. Persistent atrial fibrillation. 5. Coronary artery disease, prior history of stent. 6. Essential hypertension. 7. Permanent coronary artery pacemaker. 8. Severe persistent asthma. 9. Acute delirium on presentation, probably for pneumonia with clinical improvement. 10. Cellulitis of the percutaneous endoscopy PEG tube site, which was present on admission. 11. CODE STATUS: DO NOT RESUSCITATE. HOSPITAL COURSE: This patient presented with aspiration pneumonia. Patient is a high risk for aspiration being n.p.o. from prior stroke. Patient also had acute delirium on presentation that actually resolved. Patient is able to have a simple conversation. Patient has slight cellulitis of the PEG tube site for which antibiotic has been added. On exam, lungs improved air entry. White count is 11.2, hemoglobin is 9.6. BUN and creatinine are normal. DISCHARGE MEDICATIONS: 1. Singulair 10 mg p.o. daily. 2. Vitamin C 500 mg p.o. daily. 3. DuoNeb q.i.d. 4. Zestril 2.5 mg p.o. daily. 5. Aspirin 81 mg daily. 6. Pulmicort 0.5 mg nebulizer b.i.d. 7. Vibramycin 50 mg p.o. q.12 fourteen capsules. 8. Remeron 7.5 mg p.o. q.h.s. p.r.n. 9. Warfarin 2.5 mg q.h.s. Labs to be drawn, CBC, INR in 3 to 4 days. Tube feeding to continue. Patient is to be n.p.o. DISPOSITION: [facility]. Follow with Dr. Felton after DC from [facility]. Follow up with Dr. Kwon 06/30/2016. CODE STATUS: DNR.
== END 2016-06-29 14:35 | DRG 177 ==
LOC: EC 10:44 → 5ONC 16:25
PROVIDERS: ADMIT Hospitalist; ATTEND Hospitalist
DX: J69.0 Pneumonitis due to inhalation of food and vomit (principal); J96.21 Acute and chronic respiratory failure with hypoxia; G93.40 Encephalopathy, unspecified; I48.1 Persistent atrial fibrillation; K94.22 Gastrostomy infection; L03.311 Cellulitis of abdominal wall; R13.10 Dysphagia, unspecified; F03.90 Unspecified dementia, unspecified severity, without behavioral disturbance, psychotic disturbance, mood disturbance, and anxiety; J45.50 Severe persistent asthma, uncomplicated; I25.10 Atherosclerotic heart disease of native coronary artery without angina pectoris; I69.391 Dysphagia following cerebral infarction; Z66 Do not resuscitate; R62.7 Adult failure to thrive; Y83.3 Surgical operation with formation of external stoma as the cause of abnormal reaction of the patient, or of later complication, without mention of misadventure at the time of the procedure; Z87.891 Personal history of nicotine dependence; I10 Essential (primary) hypertension; Z79.82 Long term (current) use of aspirin; Z79.899 Other long term (current) drug therapy; Z79.02 Long term (current) use of antithrombotics/antiplatelets; Z79.52 Long term (current) use of systemic steroids; R41.0 Disorientation, unspecified; Z95.5 Presence of coronary angioplasty implant and graft; Z95.0 Presence of cardiac pacemaker
CPT/HCPCS: 36415; 43246; 44799; 71020; 80048; 80053; 82550; 82553; 83036; 83735; 83880; 84484; 85025; 85610; 85730; 87070; 87075; 87077; 87186; 87205; 93005; 94640; 94760; 96360; 96361; 96374; 96376; 99285

== ENCOUNTER 2016-08-13 13:37 | Emergency (ER) | payer MEDICARE, BC ==
--- NOTE | 2016-08-13 14:14 | ED ---
General Adult HPI - General Chief complaint: Shortness of Breath Stated complaint: SOB/Oxygen dependant/no oxygen with him Time Seen by Provider: 08/13/16 13:50 Source: family, RN notes reviewed Mode of arrival: wheelchair Limitations: no limitations - History of Present Illness Initial comments: This is an 86-year-old male presents emergency department with past medical history significant for oxygen dependent COPD. Patient comes in today stating his breathing is got worse last couple of days. Son states he aspirated some tube feeding the other day and since then seems to be complaining more about difficulty breathing. Patient also coughs quite a bit but that is normal according to the son he also coughed up quite a bit of sputum which is son states is normal she has had no fevers or chills that they know of. He has noted that he is feeling more short of breath. Patient denies any abdominal pain patient denies nausea vomiting diarrhea. Patient denies headache patient denies any numbness or focal weakness. Patient denies any lightheadedness dizziness or near syncopal episode. - Related Data Home Medications Medication Instructions Recorded Confirmed Montelukast [Singulair] 10 mg PEG/G-TUBE DAILY 12/13/14 08/13/16 Ascorbic Acid [Vitamin C] 500 mg PEG/G-TUBE DAILY 08/17/15 08/13/16 Lisinopril [Zestril] 2.5 mg PEG/G-TUBE DAILY 06/22/16 08/13/16 Albuterol Inhaler [Ventolin Hfa 2 puff INHALATION RT-Q4H PRN 08/13/16 08/13/16 Inhaler] Aspirin 325 mg PEG/G-TUBE DAILY 08/13/16 08/13/16 Budesonide [Pulmicort Flexhaler] 1 puff INHALATION RT-BID 08/13/16 08/13/16 Metoclopramide Oral Soln [Reglan 5 mg PEG/G-TUBE QID 08/13/16 08/13/16 Oral Soln] Previous Rx's Medication Instructions Recorded Ipratropium-Albuterol Nebulize 3 ml INHALATION RT-QID ampul.neb 01/25/16 [Duoneb 0.5 mg-3 mg/3 ml Soln] Allergies Allergy/AdvReac Type Severity Reaction Status Date / Time baclofen Allergy Unknown Verified 08/13/16 14:55 Horse/Equine Containing Allergy Unknown Verified 08/13/16 14:55 Products Childhood sulfamethoxazole Allergy Rash/Hives Verified 08/13/16 14:55 [From Bactrim] trimethoprim [From Bactrim] Allergy Rash/Hives Verified 08/13/16 14:55 alprazolam [From Xanax] AdvReac Hallucinati Verified 08/13/16 14:55 ons Review of Systems ROS Statement: Those systems with pertinent positive or pertinent negative responses have been documented in the HPI. ROS Other: All systems not noted in ROS Statement are negative. Past Medical History Past Medical History: Atrial Fibrillation, Asthma, Coronary Artery Disease (CAD) , COPD, CVA/TIA, Dementia, Hypertension, Memory Impairment, Syncope Additional Past Medical History / Comment(s): pacemaker, chronic atrial fibrillation, CVA,chronic dysphagia(?past aspirative pne) currently receiving enteral feeding via PEG tube, dementia History of Any Multi-Drug Resistant Organisms: None Reported Past Surgical History: Heart Catheterization, Pacemaker Additional Past Surgical History / Comment(s): heart cath, pacemaker, PEG tube 2014 Past Anesthesia/Blood Transfusion Reactions: No Reported Reaction Additional Past Anesthesia/Blood Transfusion Reaction / Comment(s): confusion after anesthesia Type of Cardiac Device: Permanent Pacemaker Device Placement Date:: 2014 [facility] Past Psychological History: No Psychological Hx Reported Smoking Status: Former smoker Past Alcohol Use History: None Reported Additional Past Alcohol Use History / Comment(s): Pt reports smoking a pack a day for five years from 13years old to 18 years old Past Drug Use History: None Reported - Past Family History Mother Family Medical History: No Reported History Father Family Medical History: No Reported History General Exam - General Exam Comments Initial Comments: GENERAL: Patient is well-developed and well-nourished. Patient is nontoxic and well- hydrated and is in mild distress. ENT: Neck is soft and supple. No significant lymphadenopathy is noted. Oropharynx is clear. Moist mucous membranes. Neck has full range of motion without eliciting any pain. EYES: The sclera were anicteric and conjunctiva were pink and moist. Extraocular movements were intact and pupils were equal round and reactive to light. Eyelids were unremarkable. PULMONARY: Unlabored respirations. Good breath sounds bilaterally. Slight crackles in the bases CARDIOVASCULAR: There is a regular rate and rhythm without any murmurs gallops or rubs. ABDOMEN: Soft and nontender with normal bowel sounds. No palpable organomegaly was noted. There is no palpable pulsatile mass. SKIN: Skin is clear with no lesions or rashes and otherwise unremarkable. NEUROLOGIC: Patient is alert and oriented x3. Cranial nerves II through XII are grossly intact. Motor and sensory are also intact. Normal speech, volume and content. Symmetrical smile. . MUSCULOSKELETAL: Normal extremities with adequate strength and full range of motion. No lower extremity swelling or edema. No calf tenderness. LYMPHATICS: No significant lymphadenopathy is noted PSYCHIATRIC: Normal psychiatric evaluation. Normal interpersonal interactions appears functionally intact in deals appropriately with others. No signs of depression. No signs of anxiety. Limitations: no limitations Course Vital Signs 08/13/16 08/13/16 08/13/16 13:45 14:20 15:00 Temperature 97 F L Pulse Rate 65 71 64 Respiratory 22 22 22 Rate Blood Pressure 109/53 114/59 O2 Sat by Pulse 96 100 Oximetry Medical Decision Making - Medical Decision Making Patient's EKG shows a paced rhythm at 77 bpm QRS is 150 QT intervals 424 QTC is 479. Patient's x-ray shows no acute abnormality. Patient is on 3 L of oxygen at all times at home. He was on 3 L in the emergency department he was satting 99-100% the whole time in the department. I went into the room and he was sleeping and his pulse ox was 100%. - Lab Data Result diagrams: 08/13/16 14:15 08/13/16 14:15 Lab Results 08/13/16 08/13/16 08/13/16 Range/Units 14:15 14:15 14:15 WBC 10.1 (3.8-10.6) k/uL RBC 3.63 L (4.30-5.90) m/uL Hgb 10.9 L (13.0-17.5) gm/dL Hct 35.3 L (39.0-53.0) % MCV 97.3 (80.0-100.0) fL MCH 30.1 (25.0-35.0) pg MCHC 30.9 L (31.0-37.0) g/dL RDW 17.8 H (11.5-15.5) % Plt Count 197 (150-450) k/uL Neutrophils % 56 % Lymphocytes % 20 % Monocytes % 6 % Eosinophils % 14 % Basophils % 1 % Neutrophils # 5.6 (1.3-7.7) k/uL Lymphocytes # 2.0 (1.0-4.8) k/uL Monocytes # 0.6 (0-1.0) k/uL Eosinophils # 1.4 H (0-0.7) k/uL Basophils # 0.1 (0-0.2) k/uL Hypochromasia Slight Anisocytosis Slight Macrocytosis Slight PT (9.0-12.0) sec INR (<1.1) APTT (22.0-30.0) sec Sodium 139 (137-145) mmol/L Potassium 4.7 (3.5-5.1) mmol/L Chloride 104 (98-107) mmol/L Carbon Dioxide 30 (22-30) mmol/L Anion Gap 5 mmol/L BUN 26 H (9-20) mg/dL Creatinine 0.75 (0.66-1.25) mg/dL Est GFR (MDRD) Af Amer >60 (>60 ml/min/1.73 sqM) Est GFR (MDRD) Non-Af >60 (>60 ml/min/1.73 sqM) Glucose 130 H (74-99) mg/dL Calcium 9.2 (8.4-10.2) mg/dL Magnesium 2.1 (1.6-2.3) mg/dL Total Bilirubin 0.6 (0.2-1.3) mg/dL AST 29 (17-59) U/L ALT 25 (21-72) U/L Alkaline Phosphatase 86 (38-126) U/L Total Creatine Kinase 26 L (55-170) U/L CK-MB (CK-2) 1.1 (0.0-2.4) ng/mL CK-MB (CK-2) Rel Index 4.2 Troponin I <0.012 (0.000-0.034) ng/mL NT-Pro-B Natriuret Pep pg/mL Total Protein 6.3 (6.3-8.2) g/dL Albumin 3.2 L (3.5-5.0) g/dL 08/13/16 08/13/16 Range/Units 14:15 14:15 WBC (3.8-10.6) k/uL RBC (4.30-5.90) m/uL Hgb (13.0-17.5) gm/dL Hct (39.0-53.0) % MCV (80.0-100.0) fL MCH (25.0-35.0) pg MCHC (31.0-37.0) g/dL RDW (11.5-15.5) % Plt Count (150-450) k/uL Neutrophils % % Lymphocytes % % Monocytes % % Eosinophils % % Basophils % % Neutrophils # (1.3-7.7) k/uL Lymphocytes # (1.0-4.8) k/uL Monocytes # (0-1.0) k/uL Eosinophils # (0-0.7) k/uL Basophils # (0-0.2) k/uL Hypochromasia Anisocytosis Macrocytosis PT 11.8 (9.0-12.0) sec INR 1.2 (<1.1) APTT 20.9 L (22.0-30.0) sec Sodium (137-145) mmol/L Potassium (3.5-5.1) mmol/L Chloride (98-107) mmol/L Carbon Dioxide (22-30) mmol/L Anion Gap mmol/L BUN (9-20) mg/dL Creatinine (0.66-1.25) mg/dL Est GFR (MDRD) Af Amer (>60 ml/min/1.73 sqM) Est GFR (MDRD) Non-Af (>60 ml/min/1.73 sqM) Glucose (74-99) mg/dL Calcium (8.4-10.2) mg/dL Magnesium (1.6-2.3) mg/dL Total Bilirubin (0.2-1.3) mg/dL AST (17-59) U/L ALT (21-72) U/L Alkaline Phosphatase (38-126) U/L Total Creatine Kinase (55-170) U/L CK-MB (CK-2) (0.0-2.4) ng/mL CK-MB (CK-2) Rel Index Troponin I (0.000-0.034) ng/mL NT-Pro-B Natriuret Pep 2420 pg/mL Total Protein (6.3-8.2) g/dL Albumin (3.5-5.0) g/dL Disposition Clinical Impression: COPD (chronic obstructive pulmonary disease) Disposition: HOME SELF-CARE Instructions: COPD (Chronic Obstructive Pulmonary Disease) (ED) Referrals: Donny Fermin DO [Primary Care Provider] - 1-2 days Time of Disposition: 15:44
[2016-08-13 14:33] LABS: Anisocytosis Slight; Basophils # (A) 0.1 k/uL (0-0.2); Basophils % (A) 1 %; CH 30.4; CHCM 31.4; Eosinophils # (A) 1.4 k/uL (0-0.7); Eosinophils % (A) 14 %; HCT 35.3 % (39.0-53.0); HDW 2.56; HGB 10.9 gm/dL (13.0-17.5); Hypochromasia Slight; Luc # (Auto) 0.37; Luc % (Auto) 4; Lymphocytes % (A) 20 %; MCH 30.1 pg (25.0-35.0); MCHC 30.9 g/dL (31.0-37.0); MCV 97.3 fL (80.0-100.0); Macrocytosis Slight; Mean Platelet Volume 8.6; Monocytes # (A) 0.6 k/uL (0-1.0); Monocytes % (A) 6 %; Neutrophils # (A) 5.6 k/uL (1.3-7.7); Neutrophils % (A) 56 %; RBC 3.63 m/uL (4.30-5.90); RDW 17.8 % (11.5-15.5); WBC 10.1 k/uL (3.8-10.6); WBC (Perox) 10.32
[2016-08-13 14:43] LABS: ALT 25 U/L (21-72); AST 29 U/L (17-59); Alkaline Phosphatase 86 U/L (38-126); Anion Gap 5 mmol/L; Blood Urea Nitrogen 26 mg/dL (9-20); Calcium 9.2 mg/dL (8.4-10.2); Carbon Dioxide 30 mmol/L (22-30); Chloride 104 mmol/L (98-107); Glucose 130 mg/dL (74-99); Magnesium 2.1 mg/dL (1.6-2.3); Non-African American GFR(MDRD) >60 (>60 ml/min/1.73 sqM); Potassium 4.7 mmol/L (3.5-5.1); Sodium 139 mmol/L (137-145); Total Bilirubin 0.6 mg/dL (0.2-1.3); Total Protein 6.3 g/dL (6.3-8.2)
--- NOTE | 2016-08-13 14:49 | XR ---
EXAMINATION TYPE: XR chest 2V DATE OF EXAM: 08/13/2016 2:37 PM COMPARISON: Chest x-ray June 25, 2016. Older chest x-ray September 14, 2015. HISTORY: Shortness of breath today. TECHNIQUE: Frontal and lateral views of the chest are obtained. FINDINGS: There is diffuse left lung opacity redemonstrated most pronounced in lung base similar to prior study. Right lung remains clear. No large pleural effusion or pneumothorax is seen bilaterally . The cardiac silhouette size is enlarged with single lead pacemaker. The osseous structures are de mineralized. IMPRESSION: Cardiomegaly and chronic parenchymal change with persistent left lower lung scarring and /or infiltrate. No significant change from most recent study. No new infiltrate is seen.
[2016-08-13 14:54] LABS: INR 1.2 (<1.1); Partial Thromboplastin Time 20.9 sec (22.0-30.0); Prothrombin Time 11.8 sec (9.0-12.0)
[2016-08-13 15:02] LABS: Creatine Kinase 26 U/L (55-170)
[2016-08-13 15:15] LABS: Creatine Kinase MB 1.1 ng/mL (0.0-2.4); Troponin I <0.012 ng/mL (0.000-0.034)
[2016-08-13 16:50] VITALS: BP 121/63; PULSE 72; RESP 20; TEMP 97.5
== END 2016-08-13 16:35 | disposition home or self-care (01) ==
LOC: EC 13:37
DX: J44.9 Chronic obstructive pulmonary disease, unspecified (principal); I48.91 Unspecified atrial fibrillation; J45.909 Unspecified asthma, uncomplicated; I25.10 Atherosclerotic heart disease of native coronary artery without angina pectoris; I11.9 Hypertensive heart disease without heart failure; Z86.73 Personal history of transient ischemic attack (TIA), and cerebral infarction without residual deficits; Z95.0 Presence of cardiac pacemaker; Z93.1 Gastrostomy status; Z99.81 Dependence on supplemental oxygen; Z88.2 Allergy status to sulfonamides; Z88.6 Allergy status to analgesic agent; Z88.8 Allergy status to other drugs, medicaments and biological substances; Z91.09 Other allergy status, other than to drugs and biological substances; Z79.51 Long term (current) use of inhaled steroids; Z79.82 Long term (current) use of aspirin; Z79.899 Other long term (current) drug therapy; Z87.891 Personal history of nicotine dependence
CPT/HCPCS: 36415; 71020; 80053; 82550; 82553; 83735; 83880; 84484; 85025; 85610; 85730; 87040; 93005; 99285

== ENCOUNTER 2016-08-19 21:11 | Inpatient (IN) | payer MEDICARE, BC ==
--- NOTE | 2016-08-19 22:09 | ED ---
SOB HPI - General Chief Complaint: Shortness of Breath Stated Complaint: MAGDALENA Time Seen by Provider: 08/19/16 21:12 Source: patient Mode of arrival: EMS Limitations: physical limitation - History of Present Illness Initial Comments: This patient is an 86-year-old man who presents with a worsening of shortness of breath and some coughing. The patient states this been getting worse since yesterday afternoon. The patient had been to the dentist that day and it had been somewhat stressful, following that he started to feel shortness of breath and having a nonproductive cough. Things have worsened over the course of this afternoon and evening. He has had for nebulized treatments and is not feeling better. Family called EMS and they brought him here. Review of the patient's recent history also reveals that he had an episode of vomiting with some coughing and gagging that was on Monday. She denies fever or chills. He does have some left lower rib pain but believes that was related to coughing. He states that it is mild, dull, and worse when you press on his ribs or when he coughs. Patient denies change in urination or bowel movements. No bloody or dark tarry stools. No swelling or pain in the legs. MD Complaint: shortness of breath, cough, chest pain Onset/Timin -: hour(s) Severity: mild Quality: dull Consistency: intermittent Worsens With: coughing Known History Of: COPD Context: choking/aspiration (Monday) Associated Symptoms: denies other symptoms Treatments Prior to Arrival: oxygen, bronchodilator - Related Data Home Medications Medication Instructions Recorded Confirmed Montelukast [Singulair] 10 mg PEG/G-TUBE DAILY 12/13/14 08/19/16 Ascorbic Acid [Vitamin C] 500 mg PEG/G-TUBE DAILY 08/17/15 08/19/16 Lisinopril [Zestril] 2.5 mg PEG/G-TUBE DAILY 06/22/16 08/19/16 Albuterol Inhaler [Ventolin Hfa 2 puff INHALATION RT-Q4H PRN 08/13/16 08/19/16 Inhaler] Aspirin 325 mg PEG/G-TUBE DAILY 08/13/16 08/19/16 Budesonide [Pulmicort Flexhaler] 1 puff INHALATION RT-BID 08/13/16 08/19/16 Metoclopramide Oral Soln [Reglan 5 mg PEG/G-TUBE QID 08/13/16 08/19/16 Oral Soln] Previous Rx's Medication Instructions Recorded Ipratropium-Albuterol Nebulize 3 ml INHALATION RT-QID ampul.neb 01/25/16 [Duoneb 0.5 mg-3 mg/3 ml Soln] Allergies Allergy/AdvReac Type Severity Reaction Status Date / Time baclofen Allergy Unknown Verified 08/19/16 22:07 Horse/Equine Containing Allergy Unknown Verified 08/19/16 22:07 Products Childhood sulfamethoxazole Allergy Rash/Hives Verified 08/19/16 22:07 [From Bactrim] trimethoprim [From Bactrim] Allergy Rash/Hives Verified 08/19/16 22:07 alprazolam [From Xanax] AdvReac Hallucinati Verified 08/19/16 22:07 ons Review of Systems ROS Statement: Those systems with pertinent positive or pertinent negative responses have been documented in the HPI. ROS Other: All systems not noted in ROS Statement are negative. Constitutional: Reports: weakness. Denies: fever, chills Respiratory: Reports: as per HPI, cough, dyspnea, wheezes. Denies: hemoptysis Cardiovascular: Reports: as per HPI, chest pain. Denies: palpitations, orthopnea, edema, syncope Gastrointestinal: Denies: abdominal pain, vomiting, diarrhea, melena, hematochezia Genitourinary: Denies: dysuria, hematuria Musculoskeletal: Denies: back pain Skin: Denies: rash Neurological: Denies: headache, weakness, numbness Past Medical History Past Medical History: Atrial Fibrillation, Asthma, Coronary Artery Disease (CAD) , COPD, CVA/TIA, Dementia, Hypertension, Memory Impairment, Syncope Additional Past Medical History / Comment(s): pacemaker, chronic atrial fibrillation, CVA,chronic dysphagia(?past aspirative pne) currently receiving enteral feeding via PEG tube, dementia History of Any Multi-Drug Resistant Organisms: None Reported Past Surgical History: Heart Catheterization, Pacemaker Additional Past Surgical History / Comment(s): heart cath, pacemaker, PEG tube 2014 Past Anesthesia/Blood Transfusion Reactions: No Reported Reaction Additional Past Anesthesia/Blood Transfusion Reaction / Comment(s): confusion after anesthesia Type of Cardiac Device: Permanent Pacemaker Device Placement Date:: 2014 EZIO FREEMAN Past Psychological History: No Psychological Hx Reported Smoking Status: Former smoker Past Alcohol Use History: None Reported Additional Past Alcohol Use History / Comment(s): Pt reports smoking a pack a day for five years from 13years old to 18 years old Past Drug Use History: None Reported - Past Family History Mother Family Medical History: No Reported History Father Family Medical History: No Reported History General Exam Limitations: physical limitation General appearance: alert, in distress (I'll tachypnea) Head exam: Present: atraumatic, normocephalic Eye exam: Present: normal appearance. Absent: scleral icterus, conjunctival injection ENT exam: Present: mucous membranes dry Neck exam: Present: normal inspection, full ROM Respiratory exam: Present: respiratory distress (Mild tachypnea), wheezes, chest wall tenderness, decreased breath sounds, prolonged expiratory. Absent: rhonchi, stridor Cardiovascular Exam: Present: regular rate, normal rhythm, normal heart sounds. Absent: systolic murmur, diastolic murmur, rubs, gallop GI/Abdominal exam: Present: soft. Absent: tenderness, guarding, rebound, mass Extremities exam: Present: normal inspection, normal capillary refill. Absent: pedal edema, calf tenderness Back exam: Present: normal inspection. Absent: CVA tenderness (R), CVA tenderness (L) Neurological exam: Present: alert Skin exam: Present: warm, dry, intact, normal color. Absent: rash Course Vital Signs 08/19/16 08/19/16 08/19/16 21:18 22:34 23:17 Temperature Pulse Rate 64 63 Respiratory 28 H 24 Rate Blood Pressure 169/73 Blood Pressure [Right Arm] O2 Sat by Pulse 98 Oximetry 08/19/16 08/19/16 08/20/16 23:25 23:44 01:44 Temperature 98.4 F Pulse Rate 64 74 Respiratory 24 18 Rate Blood Pressure 159/82 Blood Pressure 139/65 [Right Arm] O2 Sat by Pulse 96 95 Oximetry 08/20/16 08/20/16 08/20/16 01:55 02:01 02:14 Temperature 97.0 F L Pulse Rate 64 70 70 Respiratory 24 Rate Blood Pressure 175/88 Blood Pressure [Right Arm] O2 Sat by Pulse 94 L Oximetry 08/20/16 08/20/16 08/20/16 02:19 02:21 02:28 Temperature Pulse Rate 68 66 68 Respiratory 24 24 24 Rate Blood Pressure 195/82 171/79 126/60 Blood Pressure [Right Arm] O2 Sat by Pulse 95 96 96 Oximetry 08/20/16 02:40 Temperature 97.0 F L Pulse Rate 67 Respiratory 24 Rate Blood Pressure 125/63 Blood Pressure [Right Arm] O2 Sat by Pulse 96 Oximetry Medical Decision Making - Medical Decision Making Patient presents with dyspnea which appears to be multifactorial. There is deftly an element of COPD as well as CHF and per the computed tomography scan does appear to be infiltrate as well. Patient given starting dose antibiotics and admitted for further treatment. - Lab Data Result diagrams: 08/19/16 22:33 08/19/16 22:33 Lab Results 08/19/16 08/19/16 08/19/16 Range/Units 22:33 22:33 22:33 WBC 13.1 H (3.8-10.6) k/uL RBC 3.83 L (4.30-5.90) m/uL Hgb 11.8 L (13.0-17.5) gm/dL Hct 37.2 L (39.0-53.0) % MCV 97.2 (80.0-100.0) fL MCH 30.9 (25.0-35.0) pg MCHC 31.8 (31.0-37.0) g/dL RDW 17.2 H (11.5-15.5) % Plt Count 156 (150-450) k/uL Neutrophils % 66 % Lymphocytes % 12 % Monocytes % 7 % Eosinophils % 12 % Basophils % 1 % Neutrophils # 8.7 H (1.3-7.7) k/uL Lymphocytes # 1.5 (1.0-4.8) k/uL Monocytes # 0.9 (0-1.0) k/uL Eosinophils # 1.6 H (0-0.7) k/uL Basophils # 0.1 (0-0.2) k/uL Hypochromasia Slight Anisocytosis Slight Macrocytosis Slight PT 12.0 (9.0-12.0) sec INR 1.2 (<1.1) APTT 24.9 (22.0-30.0) sec D-Dimer 2.46 H (<0.60) mg/L FEU Sodium 131 L (137-145) mmol/L Potassium 5.1 (3.5-5.1) mmol/L Chloride 94 L (98-107) mmol/L Carbon Dioxide 30 (22-30) mmol/L Anion Gap 7 mmol/L BUN 27 H (9-20) mg/dL Creatinine 0.80 (0.66-1.25) mg/dL Est GFR (MDRD) Af Amer >60 (>60 ml/min/1.73 sqM) Est GFR (MDRD) Non-Af >60 (>60 ml/min/1.73 sqM) Glucose 160 H (74-99) mg/dL Plasma Lactic Acid Rakesh (0.7-2.0) mmol/L Calcium 9.0 (8.4-10.2) mg/dL Magnesium 2.0 (1.6-2.3) mg/dL Total Bilirubin 0.6 (0.2-1.3) mg/dL AST 26 (17-59) U/L ALT 29 (21-72) U/L Alkaline Phosphatase 101 (38-126) U/L Troponin I (0.000-0.034) ng/mL NT-Pro-B Natriuret Pep pg/mL Total Protein 6.4 (6.3-8.2) g/dL Albumin 3.2 L (3.5-5.0) g/dL 08/19/16 08/19/16 08/19/16 Range/Units 22:33 22:33 22:33 WBC (3.8-10.6) k/uL RBC (4.30-5.90) m/uL Hgb (13.0-17.5) gm/dL Hct (39.0-53.0) % MCV (80.0-100.0) fL MCH (25.0-35.0) pg MCHC (31.0-37.0) g/dL RDW (11.5-15.5) % Plt Count (150-450) k/uL Neutrophils % % Lymphocytes % % Monocytes % % Eosinophils % % Basophils % % Neutrophils # (1.3-7.7) k/uL Lymphocytes # (1.0-4.8) k/uL Monocytes # (0-1.0) k/uL Eosinophils # (0-0.7) k/uL Basophils # (0-0.2) k/uL Hypochromasia Anisocytosis Macrocytosis PT (9.0-12.0) sec INR (<1.1) APTT (22.0-30.0) sec D-Dimer (<0.60) mg/L FEU Sodium (137-145) mmol/L Potassium (3.5-5.1) mmol/L Chloride (98-107) mmol/L Carbon Dioxide (22-30) mmol/L Anion Gap mmol/L BUN (9-20) mg/dL Creatinine (0.66-1.25) mg/dL Est GFR (MDRD) Af Amer (>60 ml/min/1.73 sqM) Est GFR (MDRD) Non-Af (>60 ml/min/1.73 sqM) Glucose (74-99) mg/dL Plasma Lactic Acid Rakesh 0.9 (0.7-2.0) mmol/L Calcium (8.4-10.2) mg/dL Magnesium (1.6-2.3) mg/dL Total Bilirubin (0.2-1.3) mg/dL AST (17-59) U/L ALT (21-72) U/L Alkaline Phosphatase (38-126) U/L Troponin I <0.012 (0.000-0.034) ng/mL NT-Pro-B Natriuret Pep 3980 pg/mL Total Protein (6.3-8.2) g/dL Albumin (3.5-5.0) g/dL - EKG Data -: EKG Interpreted by Nm EKG shows normal: axis (Normal), intervals (QTc is 481 ms), QRS complexes (QRS duration 150 ms, consistent with paced rhythm) Interpretation: other (There is a ventricular paced rhythm with a rate is 67 bpm.) Disposition Clinical Impression: Congestive heart failure, COPD (chronic obstructive pulmonary disease), Pneumonia Disposition: ADMITTED IP TO THIS HOSP Condition: Poor
--- NOTE | 2016-08-19 22:37 | XR ---
EXAM: XR Chest, 1 View CLINICAL HISTORY: Reason: dyspnea TECHNIQUE: Frontal view of the chest. COMPARISON: Chest radiographs 08/13/2016 and 06/25/2016 FINDINGS: Lungs: Heart size is mildly enlarged. Pulmonary vasculature is within normal limits. There is persistent increased markings in the left lower lung zone and mild pleural density along the left costophrenic angle which remains unchanged as prior studies dating back to 06/25/2016. Stable small ovoid nodular density projects to right mid to lower lung zone also unchanged. No developing pulmonary infiltrates or consolidations. Pleural space: No evidence of pneumothorax. Heart: See above. Mediastinum: Unremarkable. Bones/joints: Unremarkable. Tubes, lines and devices: Cardiac pacer has lead extending to region of right ventricle. Other findings: No significant changes prior examinations of 08/13/16 and 06/25/2016. IMPRESSION: Mild cardiomegaly. Stable left lower lung zone opacity which may reflect pleural- parenchymal scarring or persistent infiltrate and mild pleural thickening, unchanged since 06/25/2016. Stable small right mid to lower lung zone nodular density which is of indeterminate etiology.
[2016-08-19 22:44] LABS: Anisocytosis Slight; Basophils # (A) 0.1 k/uL (0-0.2); Basophils % (A) 1 %; CH 30.1; CHCM 31.1; Eosinophils # (A) 1.6 k/uL (0-0.7); Eosinophils % (A) 12 %; HCT 37.2 % (39.0-53.0); HDW 2.52; HGB 11.8 gm/dL (13.0-17.5); Hypochromasia Slight; Luc # (Auto) 0.33; Luc % (Auto) 3; Lymphocytes # (A) 1.5 k/uL (1.0-4.8); Lymphocytes % (A) 12 %; MCH 30.9 pg (25.0-35.0); MCHC 31.8 g/dL (31.0-37.0); MCV 97.2 fL (80.0-100.0); Macrocytosis Slight; Mean Platelet Volume 8.8; Monocytes # (A) 0.9 k/uL (0-1.0); Monocytes % (A) 7 %; Neutrophils # (A) 8.7 k/uL (1.3-7.7); Neutrophils % (A) 66 %; RBC 3.83 m/uL (4.30-5.90); RDW 17.2 % (11.5-15.5); WBC 13.1 k/uL (3.8-10.6); WBC (Perox) 13.91
[2016-08-19] MEDS ORDERED: predniSONE 20 MG TAB PO STA (22:47)
[2016-08-19] MEDS ORDERED: IPRATROPIUM-ALBUTEROL 3 ML NEB INHALATION STA (22:48)
[2016-08-19 22:55] LABS: ALT 29 U/L (21-72); AST 26 U/L (17-59); Alkaline Phosphatase 101 U/L (38-126); Anion Gap 7 mmol/L; Blood Urea Nitrogen 27 mg/dL (9-20); Carbon Dioxide 30 mmol/L (22-30); Chloride 94 mmol/L (98-107); Glucose 160 mg/dL (74-99); Non-African American GFR(MDRD) >60 (>60 ml/min/1.73 sqM); Potassium 5.1 mmol/L (3.5-5.1); Sodium 131 mmol/L (137-145); Total Bilirubin 0.6 mg/dL (0.2-1.3); Total Protein 6.4 g/dL (6.3-8.2)
[2016-08-19 23:02] LABS: INR 1.2 (<1.1); Partial Thromboplastin Time 24.9 sec (22.0-30.0)
[2016-08-19] MEDS ORDERED: RX INFO: IV CONTRAST WAS GIVEN 1 EACH MISC MISCELLANE PRN (23:13)
[2016-08-19] MEDS ORDERED: methylPREDNISolone SOD SUCCI 125 MG/2 ML VIAL IV STA (23:15)
--- NOTE | 2016-08-20 01:12 | CT ---
EXAM: CT Chest With Intravenous Contrast CLINICAL HISTORY: Reason: Pain TECHNIQUE: Axial computed tomography images of the chest with intravenous contrast during the arterial phase of enhancement. CTDI is 77 mGy and DLP is 332. 9 mGy-cm This CT exam was performed using one or more of the following dose reduction techniques: automated exposure control, adjustment of the mA and/or kV according to patient size, and/or use of iterative reconstruction technique. COMPARISON: Chest radiograph 08/19/2016 CT chest 09/12/2015 FINDINGS: Pulmonary arteries: No evidence of pulmonary thromboembolic disease. Aorta: Evidence of a ascending thoracic aortic aneurysm measuring approximately 4.5 cm in maximum AP diameter which is mildly increased as compared to prior study 09/12/15. No evidence of thoracic aortic dissection. No evidence of periaortic hemorrhage or hematoma. There is calcific atherosclerotic plaque involving the thoracic aorta. Lungs: Multifocal groundglass and patchy pulmonary opacities throughout both lungs demonstrating interval change as compared to prior study of 09/12/2015. Development of more confluent consolidative and airspace opacity involving anterior segment of right upper lobe. Patchy infiltrative opacity involves lingular segments of left upper lobe. Development of mild reticulonodular opacities in the apical segment of left upper lobe. Pleural and parenchymal opacities along the posterior left lung base with similar findings on prior study of 09/12/2015 which may reflect part of parenchymal scarring. Pleural space: Bilateral calcific pleural plaques raising possibility of asbestos-related pleural disease. There is left pleural thickening and probable small left pleural effusion. No pneumothorax. Heart: Heart size is mildly enlarged. There are scattered coronary arterial calcifications. No significant pericardial effusion. Bones/joints: Degenerative changes involve the thoracic spine. Soft tissues: Mild mediastinal lymphadenopathy. Lymph nodes: Mild mediastinal adenopathy which is nonspecific and unchanged since 09/12/2015. IMPRESSION: Ascending thoracic aortic aneurysm measuring 4.5 cm in maximum AP diameter mildly increased as compared to CT of 09/04/2015. No evidence of thoracic aortic dissection. No evidence of pulmonary thromboembolic disease. Multifocal bilateral pulmonary infiltrates which are nonspecific but raise possibility of pneumonia. Clinical correlation is recommended. Chronic left base pleural-parenchymal opacity raising possibility of chronic pleural parenchymal scarring and associated pleural thickening. Small left pleural effusion Chronic bilateral calcified pleural plaques as can be seen with asbestos related pleural disease. Mild mediastinal lymphadenopathy, not significantly changed since 09/12/2015.
[2016-08-20] MEDS ORDERED: ALBUTEROL NEBULIZED 2.5 MG/3 ML INHALATION PRN (01:21)
[2016-08-20] MEDS ORDERED: LEVOFLOXACIN 750MG-D5W PMX 750 MG in DEXTROSE/WATER 1 150ML.BAG IVPB STA (01:23)
[2016-08-20] MEDS ORDERED: PIPERACILLIN-TAZOBACTAM 3.375 GM in DEXTROSE/WATER 1 50ML.BAG IVPB STA (01:23)
[2016-08-20] MEDS ORDERED: ALBUTEROL NEBULIZED 2.5 MG/3 ML INHALATION STA (01:53)
[2016-08-20] MEDS ORDERED: FUROSEMIDE 10 MG/ML 4 ML VIAL IV STA (01:53)
[2016-08-20] MEDS ORDERED: NITROGLYCERIN OINT 1 INCH/GM PACKET TOPICAL STA (01:54)
[2016-08-20] MEDS: methylPREDNISolone SOD SUCCI 125 MG/2 ML VIAL IV SCH ×4 (02:04→22:07)
[2016-08-20] MEDS ORDERED: NITROGLYCERIN SL TABS 0.4 MG TAB SUBLINGUAL PRN (02:17)
[2016-08-20 06:08] LABS: Glucose,Whole Blood 180 mg/dL (75-99)
[2016-08-20] MEDS: NITROGLYCERIN OINT 1 INCH/GM PACKET TOPICAL SCH ×3 (06:21→16:39)
[2016-08-20] MEDS: INSULIN LISPRO (humaLOG) 300 UNIT/3 ML VIAL SQ SCH ×4 (06:22→20:47)
[2016-08-20] MEDS: IPRATROPIUM-ALBUTEROL 3 ML NEB INHALATION SCH ×4 (08:09→20:05)
[2016-08-20] MEDS: BUDESONIDE 0.5 MG/2 ML NEBU INHALATION SCH ×2 (08:09→20:05)
[2016-08-20] MEDS: PIPERACILLIN-TAZOBACTAM 3.375 GM in DEXTROSE/WATER 1 50ML.BAG IVPB SCH ×2 (11:33→16:32)
[2016-08-20 11:53] LABS: Glucose,Whole Blood 159 mg/dL (75-99)
[2016-08-20] MEDS ORDERED: FUROSEMIDE 10 MG/ML 4 ML VIAL IV SCH (12:00)
[2016-08-20 13:40] LABS: Hemoglobin A1C 5.3 % (4.2-6.1)
[2016-08-20] MEDS: HEPARIN SODIUM,PORCINE 5,000 UNIT/ML 1 ML VIAL SQ SCH ×2 (16:25→20:47)
[2016-08-20] MEDS: METOCLOPRAMIDE ORAL SOLN 10 MG/10 ML CUP PEG/G-TUBE SCH ×4 (16:26→20:51)
[2016-08-20] MEDS: LISINOPRIL 2.5 MG TAB PEG/G-TUBE SCH (16:26)
[2016-08-20] MEDS: ASPIRIN 325 MG TAB PEG/G-TUBE SCH (16:26)
[2016-08-20] MEDS: MONTELUKAST 10 MG TAB PEG/G-TUBE SCH (16:27)
[2016-08-20] MEDS: methylPREDNISolone SOD SUCCI 40 MG/ML 1 ML VIAL IV SCH (16:33)
[2016-08-20 16:54] LABS: Glucose,Whole Blood 171 mg/dL (75-99)
--- NOTE | 2016-08-20 17:05 | P.HPIM ---
History of Present Illness H&P Date: 08/20/16 This is a 86-year-old gentleman that is brought in to the hospital by his niece with the complaints of progressive cough that has been nonproductive in nature over the last 2-3 weeks. About 3 days ago patient apparently has had a severe coughing bout where there after he vomited. With the last 2 days his breathing has gotten progressively worse. Last night patient probably was noted to have significant wheezing and distress while at rest hence was brought into the emergency room for ongoing care. A CT of the chest was done was noted to have atypical finding of fluid overload. At the time of my evaluation patient continues to cough however has been nonproductive in nature Patient does have a history of dysphagia currently has a PEG tube in place is strict nothing by mouth except for ice chips Currently denies having any headaches, blurry vision, chest pain, vomiting, abdominal pain, lower extremity tenderness. Patient main complaint is cough states to have some chills in the recent times Review of Systems All systems: negative (Noted in HPI) Past Medical History Past Medical History: Atrial Fibrillation, Asthma, Coronary Artery Disease (CAD) , COPD, CVA/TIA, Dementia, Hypertension, Memory Impairment, Syncope Additional Past Medical History / Comment(s): pacemaker, chronic atrial fibrillation, CVA,chronic dysphagia(?past aspirative pne) currently receiving enteral feeding via PEG tube, dementia History of Any Multi-Drug Resistant Organisms: None Reported Past Surgical History: Heart Catheterization, Pacemaker Additional Past Surgical History / Comment(s): heart cath, pacemaker, PEG tube 2014 Past Anesthesia/Blood Transfusion Reactions: No Reported Reaction Additional Past Anesthesia/Blood Transfusion Reaction / Comment(s): confusion after anesthesia Type of Cardiac Device: Permanent Pacemaker Device Placement Date:: 2014 EZIO FREEMAN Past Psychological History: No Psychological Hx Reported Smoking Status: Former smoker Past Alcohol Use History: None Reported Additional Past Alcohol Use History / Comment(s): Pt reports smoking a pack a day for five years from 13years old to 18 years old Past Drug Use History: None Reported - Past Family History Mother Family Medical History: No Reported History Father Family Medical History: No Reported History Medications and Allergies Home Medications Medication Instructions Recorded Confirmed Type Montelukast [Singulair] 10 mg PEG/G-TUBE DAILY 12/13/14 08/19/16 History Ascorbic Acid [Vitamin C] 500 mg PEG/G-TUBE DAILY 08/17/15 08/19/16 History Lisinopril [Zestril] 2.5 mg PEG/G-TUBE DAILY 06/22/16 08/19/16 History Albuterol Inhaler [Ventolin Hfa 2 puff INHALATION RT-Q4H PRN 08/13/16 08/19/16 History Inhaler] Aspirin 325 mg PEG/G-TUBE DAILY 08/13/16 08/19/16 History Budesonide [Pulmicort Flexhaler] 1 puff INHALATION RT-BID 08/13/16 08/19/16 History Metoclopramide Oral Soln [Reglan 5 mg PEG/G-TUBE QID 08/13/16 08/19/16 History Oral Soln] Allergies Allergy/AdvReac Type Severity Reaction Status Date / Time baclofen Allergy Unknown Verified 08/19/16 22:07 Horse/Equine Containing Allergy Unknown Verified 08/19/16 22:07 Products Childhood sulfamethoxazole Allergy Rash/Hives Verified 08/19/16 22:07 [From Bactrim] trimethoprim [From Bactrim] Allergy Rash/Hives Verified 08/19/16 22:07 alprazolam [From Xanax] AdvReac Hallucinati Verified 08/19/16 22:07 ons Physical Exam Vitals: Vital Signs Temp Pulse Pulse Resp BP BP Pulse Ox 08/20/16 16:00 82 16 114/64 93 L 08/20/16 15:54 80 08/20/16 15:43 80 08/20/16 12:14 80 08/20/16 12:02 80 08/20/16 11:48 82 16 114/64 93 L 08/20/16 11:18 16 08/20/16 08:35 78 08/20/16 08:10 76 08/20/16 08:00 98.3 F 76 16 103/58 95 08/20/16 05:23 75 08/20/16 05:15 66 08/20/16 04:00 98.4 F 18 136/68 96 08/20/16 02:40 97.0 F L 67 24 125/63 96 08/20/16 02:28 68 24 126/60 96 08/20/16 02:21 66 24 171/79 96 08/20/16 02:19 68 24 195/82 95 08/20/16 02:14 70 08/20/16 02:01 70 08/20/16 01:55 97.0 F L 64 24 175/88 94 L 08/20/16 01:44 98.4 F 18 139/65 95 Intake and Output 08/20/16 08/20/16 08/20/16 06:59 14:59 22:59 Output Total 175 175 Balance -175 -175 Output: Urine 175 175 Other: Voiding Method Diaper Diaper Diaper Incontinent Incontinent Incontinent # Voids 2 2 Weight 74.7 kg 74.7 kg Patient Weight 08/21/16 06:59 Weight 74.7 kg Gen. appearance alert oriented she does not appear to be in distress Supple noted Lungs air movement is appreciated.crackles at the right base on the left side air movement is appreciated Abdomen is soft nontender no organomegaly PEG tube is in place Lower extremity is no significant edema noted Neuro is able to move all 4 extremities no focal motor or sensory deficits appreciated Results CBC & Chem 7: 08/19/16 22:33 08/19/16 22:33 Labs: Abnormal Lab Results - Last 24 Hours (Table) 08/20/16 08/20/16 08/20/16 Range/Units 06:07 11:47 16:40 POC Glucose (mg/dL) 180 H 159 H 171 H (75-99) mg/dL Thrombosis Risk Factor Assmnt - Choose All That Apply Any of the Below Risk Factors Present?: Yes Each Factor Represents 1 point: Abnormal pulmonary function (COPD) Each Risk Factor Represents 3 Points: Age 75 years or older Thrombosis Risk Factor Assessment Total Risk Factor Score: 4 Thrombosis Risk Factor Assessment Level: Moderate Risk Assessment and Plan Plan: #1 sepsis secondary to an aspiration pneumonia #2 acute on chronic hypoxic respiratory failure #3 dysphagia currently maintained on PEG tube feeding #4 CAD #5 persistent atrial fibrillation any correlation with discontinued with history of falls in the past #6 essential hypertension #7 severe persistent asthma Plan We'll continue with antibody therapy with Zosyn and Levaquin at this time patient was recently hospitalized Zosyn will cover anaerobic organisms as well continue with the steroid therapy and breathing treatments. In regards to patient being an acute heart failure no other clinical signs do appear to be supportive will DC IV fluids. Hold off on diuretics at this time if clinically patient worsens would be able to attribute to CHF. Patient does not have orthopnea or PND or JVD Medications were reconciled. PEG tube feeds were retracted to be started Strict nothing by mouth except for ice chips
[2016-08-20 20:48] LABS: Glucose,Whole Blood 233 mg/dL (75-99)
[2016-08-21] MEDS: LEVOFLOXACIN 750MG-D5W PMX 750 MG in DEXTROSE/WATER 1 150ML.BAG IVPB SCH ×2 (00:02→21:52)
[2016-08-21] MEDS: methylPREDNISolone SOD SUCCI 40 MG/ML 1 ML VIAL IV SCH ×3 (00:03→16:57)
[2016-08-21] MEDS: NITROGLYCERIN OINT 1 INCH/GM PACKET TOPICAL SCH ×4 (00:03→16:58)
[2016-08-21] MEDS: PIPERACILLIN-TAZOBACTAM 3.375 GM in DEXTROSE/WATER 1 50ML.BAG IVPB SCH ×3 (02:03→17:02)
[2016-08-21 06:35] LABS: Glucose,Whole Blood 167 mg/dL (75-99)
[2016-08-21] MEDS: INSULIN LISPRO (humaLOG) 300 UNIT/3 ML VIAL SQ SCH ×4 (06:48→21:49)
[2016-08-21] MEDS: IPRATROPIUM-ALBUTEROL 3 ML NEB INHALATION SCH ×4 (06:59→19:05)
[2016-08-21] MEDS: BUDESONIDE 0.5 MG/2 ML NEBU INHALATION SCH ×2 (06:59→19:04)
[2016-08-21 07:21] LABS: Anisocytosis Slight; Basophils % (A) 0 %; CH 30.4; CHCM 31.6; Eosinophils % (A) 0 %; HCT 33.6 % (39.0-53.0); HDW 2.54; HGB 11.1 gm/dL (13.0-17.5); Hypochromasia Slight; Luc # (Auto) 0.29; Luc % (Auto) 1; Lymphocytes # (A) 0.7 k/uL (1.0-4.8); Lymphocytes % (A) 3 %; MCH 31.8 pg (25.0-35.0); MCHC 32.9 g/dL (31.0-37.0); MCV 96.7 fL (80.0-100.0); Macrocytosis Slight; Mean Platelet Volume 8.8; Monocytes # (A) 0.6 k/uL (0-1.0); Monocytes % (A) 3 %; Neutrophils # (A) 19.9 k/uL (1.3-7.7); Neutrophils % (A) 92 %; RBC 3.48 m/uL (4.30-5.90); RDW 17.6 % (11.5-15.5); WBC 21.5 k/uL (3.8-10.6); WBC (Perox) 23.08
[2016-08-21 07:57] LABS: ALT 20 U/L (21-72); AST 28 U/L (17-59); Alkaline Phosphatase 87 U/L (38-126); Anion Gap 10 mmol/L; Blood Urea Nitrogen 39 mg/dL (9-20); Calcium 8.9 mg/dL (8.4-10.2); Carbon Dioxide 29 mmol/L (22-30); Chloride 97 mmol/L (98-107); Glucose 135 mg/dL (74-99); Non-African American GFR(MDRD) >60 (>60 ml/min/1.73 sqM); Potassium 3.6 mmol/L (3.5-5.1); Sodium 136 mmol/L (137-145); Total Bilirubin 0.8 mg/dL (0.2-1.3); Total Protein 6.2 g/dL (6.3-8.2)
[2016-08-21] MEDS: ASPIRIN 325 MG TAB PEG/G-TUBE SCH (08:13)
[2016-08-21] MEDS: MONTELUKAST 10 MG TAB PEG/G-TUBE SCH (08:14)
[2016-08-21] MEDS: HEPARIN SODIUM,PORCINE 5,000 UNIT/ML 1 ML VIAL SQ SCH ×2 (08:14→21:49)
[2016-08-21] MEDS: METOCLOPRAMIDE ORAL SOLN 10 MG/10 ML CUP PEG/G-TUBE SCH ×4 (08:14→21:49)
[2016-08-21] MEDS: LISINOPRIL 2.5 MG TAB PEG/G-TUBE SCH (08:14)
--- NOTE | 2016-08-21 08:29 | XR ---
EXAMINATION TYPE: XR chest 1V portable DATE OF EXAM: 08/21/2016 7:23 AM COMPARISON: 08/19/2016. HISTORY: Difficult breathing TECHNIQUE: Single frontal view of the chest is obtained. FINDINGS: The known ascending thoracic aorta aneurysm is not well appreciated on this exam given rot ation. Calcified left pleural plaquing is again noted as well as pleural parenchymal thickening. Retr ocardiac airspace disease obscures the left costophrenic angle and left hemidiaphragm, similar to the prior exam. The cardiac silhouette size is within normal limits. Single lead left-sided cardiac meek ce is unchanged. The osseous structures are intact. Generalized osseous demineralization and degener ative changes are noted. IMPRESSION: Retrocardiac airspace disease, likely relates to left lower lobe pneumonia given the recent chest CT findings.
[2016-08-21 12:01] LABS: Glucose,Whole Blood 155 mg/dL (75-99)
--- NOTE | 2016-08-21 12:14 | P.PN ---
Subjective This is a 86-year-old gentleman that is brought in to the hospital by his niece with the complaints of progressive cough that has been nonproductive in nature over the last 2-3 weeks. About 3 days ago patient apparently has had a severe coughing bout where there after he vomited. With the last 2 days his breathing has gotten progressively worse. Last night patient probably was noted to have significant wheezing and distress while at rest hence was brought into the emergency room for ongoing care. A CT of the chest was done was noted to have atypical finding of fluid overload. At the time of my evaluation patient continues to cough however has been nonproductive in nature Patient does have a history of dysphagia currently has a PEG tube in place is strict nothing by mouth except for ice chips Currently denies having any headaches, blurry vision, chest pain, vomiting, abdominal pain, lower extremity tenderness. Patient main complaint is cough states to have some chills in the recent times 08/21/16 Improved cough Breathing is stable denies having fevers chills nausea vomiting at this time Is tolerating tube feeds via PEG tube Objective - Vital Signs Vital signs: Vital Signs Temp 96.4 F L 08/21/16 08:00 Pulse 87 08/21/16 08:00 Resp 16 08/21/16 08:00 BP 104/55 08/21/16 08:00 Pulse Ox 92 L 08/21/16 08:00 Intake & Output 08/20/16 08/21/16 08/21/16 18:59 06:59 18:59 Output Total 175 Balance -175 Weight 74.7 kg Output: Urine 175 Other: Voiding Method Diaper Diaper Diaper Incontinent Incontinent Incontinent # Voids 2 0 - Exam Physical exam Gen. appearance oriented 3 in no distress Neck is supple no JVD Lungs Crackles at the right base. Heart S1-S2 heard regular rate and rhythm no murmurs appreciated Abdomen is soft nontender no organomegaly bowel sounds are intact Neurologically cranial nerves II-12 grossly intact no focal motor or sensory deficits noted Skin no abnormalities appreciated - Labs CBC & Chem 7: 08/21/16 06:25 08/21/16 06:25 Labs: Abnormal Lab Results - Last 24 Hours (Table) 08/20/16 08/20/16 08/21/16 Range/Units 16:40 20:33 06:25 WBC 21.5 H (3.8-10.6) k/uL RBC 3.48 L (4.30-5.90) m/uL Hgb 11.1 L (13.0-17.5) gm/dL Hct 33.6 L (39.0-53.0) % RDW 17.6 H (11.5-15.5) % Neutrophils # 19.9 H (1.3-7.7) k/uL Lymphocytes # 0.7 L (1.0-4.8) k/uL Sodium (137-145) mmol/L Chloride (98-107) mmol/L BUN (9-20) mg/dL Glucose (74-99) mg/dL POC Glucose (mg/dL) 171 H 233 H (75-99) mg/dL ALT (21-72) U/L Total Protein (6.3-8.2) g/dL Albumin (3.5-5.0) g/dL 08/21/16 08/21/16 08/21/16 Range/Units 06:25 06:25 11:39 WBC (3.8-10.6) k/uL RBC (4.30-5.90) m/uL Hgb (13.0-17.5) gm/dL Hct (39.0-53.0) % RDW (11.5-15.5) % Neutrophils # (1.3-7.7) k/uL Lymphocytes # (1.0-4.8) k/uL Sodium 136 L (137-145) mmol/L Chloride 97 L (98-107) mmol/L BUN 39 H (9-20) mg/dL Glucose 135 H (74-99) mg/dL POC Glucose (mg/dL) 167 H 155 H (75-99) mg/dL ALT 20 L (21-72) U/L Total Protein 6.2 L (6.3-8.2) g/dL Albumin 3.2 L (3.5-5.0) g/dL Assessment and Plan Plan: #1 sepsis secondary to an aspiration pneumonia #2 acute on chronic hypoxic respiratory failure #3 dysphagia currently maintained on PEG tube feeding #4 CAD #5 persistent atrial fibrillation any correlation with discontinued with history of falls in the past #6 essential hypertension #7 severe persistent asthma Plan We'll continue with antibody therapy with Zosyn and Levaquin at this time patient was recently hospitalized Zosyn will cover anaerobic organisms as well continue with the steroid therapy and breathing treatments. Repeat chest x-ray is more convincing of a pneumonic infiltrate from an aspiration no signs of CHF Medications were reconciled. PEG tube feeds were retracted to be started Strict nothing by mouth except for ice chips
[2016-08-21 17:19] LABS: Glucose,Whole Blood 281 mg/dL (75-99)
[2016-08-21 21:09] LABS: Glucose,Whole Blood 182 mg/dL (75-99)
[2016-08-22] MEDS: methylPREDNISolone SOD SUCCI 40 MG/ML 1 ML VIAL IV SCH ×4 (00:37→23:49)
[2016-08-22] MEDS: NITROGLYCERIN OINT 1 INCH/GM PACKET TOPICAL SCH ×5 (00:37→23:39)
[2016-08-22] MEDS: PIPERACILLIN-TAZOBACTAM 3.375 GM in DEXTROSE/WATER 1 50ML.BAG IVPB SCH ×3 (02:43→17:55)
[2016-08-22 06:12] LABS: Glucose,Whole Blood 134 mg/dL (75-99)
[2016-08-22] MEDS: INSULIN LISPRO (humaLOG) 300 UNIT/3 ML VIAL SQ SCH ×4 (06:54→21:59)
[2016-08-22] MEDS: BUDESONIDE 0.5 MG/2 ML NEBU INHALATION SCH ×2 (07:14→21:44)
[2016-08-22] MEDS: IPRATROPIUM-ALBUTEROL 3 ML NEB INHALATION SCH ×4 (07:14→21:44)
[2016-08-22] MEDS: METOCLOPRAMIDE ORAL SOLN 10 MG/10 ML CUP PEG/G-TUBE SCH ×4 (07:59→21:58)
[2016-08-22] MEDS: ASPIRIN 325 MG TAB PEG/G-TUBE SCH (08:00)
[2016-08-22] MEDS: LISINOPRIL 2.5 MG TAB PEG/G-TUBE SCH (08:00)
[2016-08-22] MEDS: MONTELUKAST 10 MG TAB PEG/G-TUBE SCH (08:00)
[2016-08-22 11:29] LABS: Glucose,Whole Blood 149 mg/dL (75-99)
[2016-08-22] MEDS: HEPARIN SODIUM,PORCINE 5,000 UNIT/ML 1 ML VIAL SQ SCH ×2 (11:35→21:58)
--- NOTE | 2016-08-22 12:46 | P.PN ---
Subjective This is a 86-year-old gentleman that is brought in to the hospital by his niece with the complaints of progressive cough that has been nonproductive in nature over the last 2-3 weeks. About 3 days ago patient apparently has had a severe coughing bout where there after he vomited. With the last 2 days his breathing has gotten progressively worse. Last night patient probably was noted to have significant wheezing and distress while at rest hence was brought into the emergency room for ongoing care. A CT of the chest was done was noted to have atypical finding of fluid overload. At the time of my evaluation patient continues to cough however has been nonproductive in nature Patient does have a history of dysphagia currently has a PEG tube in place is strict nothing by mouth except for ice chips Currently denies having any headaches, blurry vision, chest pain, vomiting, abdominal pain, lower extremity tenderness. Patient main complaint is cough states to have some chills in the recent times 08/21/16 Improved cough Breathing is stable denies having fevers chills nausea vomiting at this time Is tolerating tube feeds via PEG tube 08/22/2016 States to have a cough with greenish sputum production appears to be improved currently on 2 L supplement oxygen denies having any fevers chills episodes of emesis. States to have improved overall. Objective - Vital Signs Vital signs: Vital Signs Temp 98.1 F 08/22/16 07:49 Pulse 70 08/22/16 11:33 Resp 16 08/22/16 11:33 BP 114/57 08/22/16 11:33 Pulse Ox 97 08/22/16 11:33 Intake & Output 08/21/16 08/22/16 08/22/16 18:59 06:59 18:59 Weight 78.5 kg Other: Voiding Method Diaper Diaper Diaper Incontinent Incontinent Incontinent # Voids 0 # Bowel Movements 2 - Exam Physical exam Gen. appearance oriented 3 in no distress Neck is supple no JVD Lungs improved air movement appreciated no abnormal sounds appreciated. Heart S1-S2 heard regular rate and rhythm no murmurs appreciated Abdomen is soft nontender no organomegaly bowel sounds are intact Neurologically cranial nerves II-12 grossly intact no focal motor or sensory deficits noted Skin no abnormalities appreciated - Labs CBC & Chem 7: 08/21/16 06:25 08/21/16 06:25 Labs: Abnormal Lab Results - Last 24 Hours (Table) 08/21/16 08/21/16 08/22/16 Range/Units 16:50 21:05 06:06 POC Glucose (mg/dL) 281 H 182 H 134 H (75-99) mg/dL 08/22/16 Range/Units 11:28 POC Glucose (mg/dL) 149 H (75-99) mg/dL Assessment and Plan Plan: #1 sepsis secondary to an aspiration pneumonia #2 acute on chronic hypoxic respiratory failure #3 dysphagia currently maintained on PEG tube feeding #4 CAD #5 persistent atrial fibrillation any correlation with discontinued with history of falls in the past #6 essential hypertension #7 severe persistent asthma Plan De-escalate from Levaquin continue with Zosyn. Continue current breathing treatments aspiration precautions to be maintained Nothing by mouth except for ice chips Repeat chest x-ray in the a.m. Likely discharge the patient home depending on the evaluation by physical therapy.
[2016-08-22 16:59] LABS: Glucose,Whole Blood 201 mg/dL (75-99)
[2016-08-22 21:04] LABS: Glucose,Whole Blood 216 mg/dL (75-99)
[2016-08-23] MEDS: PIPERACILLIN-TAZOBACTAM 3.375 GM in DEXTROSE/WATER 1 50ML.BAG IVPB SCH ×3 (01:27→17:52)
[2016-08-23 06:36] LABS: Glucose,Whole Blood 194 mg/dL (75-99)
[2016-08-23] MEDS: NITROGLYCERIN OINT 1 INCH/GM PACKET TOPICAL SCH ×3 (06:48→17:50)
[2016-08-23] MEDS: INSULIN LISPRO (humaLOG) 300 UNIT/3 ML VIAL SQ SCH ×4 (06:49→22:19)
[2016-08-23 07:42] LABS: Anisocytosis Slight; Basophils % (A) 0 %; CH 30.6; CHCM 31.8; Eosinophils % (A) 0 %; HDW 2.72; HGB 11.4 gm/dL (13.0-17.5); Hypochromasia Slight; Luc % (Auto) 1; Lymphocytes # (A) 0.5 k/uL (1.0-4.8); Lymphocytes % (A) 3 %; MCH 31.3 pg (25.0-35.0); MCHC 32.4 g/dL (31.0-37.0); MCV 96.7 fL (80.0-100.0); Macrocytosis Slight; Mean Platelet Volume 8.6; Monocytes # (A) 0.7 k/uL (0-1.0); Monocytes % (A) 4 %; Neutrophils # (A) 17.1 k/uL (1.3-7.7); Neutrophils % (A) 92 %; RBC 3.62 m/uL (4.30-5.90); RDW 17.7 % (11.5-15.5); WBC 18.6 k/uL (3.8-10.6); WBC (Perox) 18.04
[2016-08-23 07:48] LABS: ALT 37 U/L (21-72); AST 35 U/L (17-59); Alkaline Phosphatase 89 U/L (38-126); Anion Gap 7 mmol/L; Blood Urea Nitrogen 47 mg/dL (9-20); Calcium 8.5 mg/dL (8.4-10.2); Carbon Dioxide 32 mmol/L (22-30); Chloride 102 mmol/L (98-107); Glucose 204 mg/dL (74-99); Non-African American GFR(MDRD) >60 (>60 ml/min/1.73 sqM); Potassium 3.3 mmol/L (3.5-5.1); Sodium 141 mmol/L (137-145); Total Bilirubin 0.6 mg/dL (0.2-1.3); Total Protein 5.9 g/dL (6.3-8.2)
--- NOTE | 2016-08-23 07:55 | XR ---
EXAMINATION TYPE: XR chest 1V portable DATE OF EXAM: 08/23/2016 7:30 AM COMPARISON: Prior chest x-ray 08/21/2016, CT chest 19 Aug 2016 HISTORY: Difficulty breathing, shortness of breath TECHNIQUE: Single frontal view of the chest is obtained. FINDINGS: Patient is rotated. Pacemaker is stable. No evident pneumothorax. There are overlying card iac leads. Heart size may be accentuated by technique. No definite pleural effusion. Difficult to exc lude some minimal basilar density on the left. Lung volumes are low. IMPRESSION: Rotated exam. Cardiomegaly. Possible left lower lobe atelectasis or scarring, difficult to exclude small effusion, follow-up as indicated
[2016-08-23] MEDS: methylPREDNISolone SOD SUCCI 40 MG/ML 1 ML VIAL IV SCH ×2 (08:41→17:49)
[2016-08-23] MEDS: METOCLOPRAMIDE ORAL SOLN 10 MG/10 ML CUP PEG/G-TUBE SCH ×4 (08:42→22:20)
[2016-08-23] MEDS: HEPARIN SODIUM,PORCINE 5,000 UNIT/ML 1 ML VIAL SQ SCH ×2 (08:42→22:20)
[2016-08-23] MEDS: LISINOPRIL 2.5 MG TAB PEG/G-TUBE SCH (08:42)
[2016-08-23] MEDS: ASPIRIN 325 MG TAB PEG/G-TUBE SCH (08:42)
[2016-08-23] MEDS: MONTELUKAST 10 MG TAB PEG/G-TUBE SCH (08:43)
[2016-08-23] MEDS: BUDESONIDE 0.5 MG/2 ML NEBU INHALATION SCH ×2 (09:05→19:40)
[2016-08-23] MEDS: IPRATROPIUM-ALBUTEROL 3 ML NEB INHALATION SCH ×4 (09:05→19:40)
[2016-08-23 11:47] VITALS: BMI 24.9
[2016-08-23 11:49] LABS: Glucose,Whole Blood 250 mg/dL (75-99)
[2016-08-23 16:46] LABS: Glucose,Whole Blood 170 mg/dL (75-99)
--- NOTE | 2016-08-23 16:53 | P.PN ---
Subjective This is a 86-year-old gentleman that is brought in to the hospital by his niece with the complaints of progressive cough that has been nonproductive in nature over the last 2-3 weeks. About 3 days ago patient apparently has had a severe coughing bout where there after he vomited. With the last 2 days his breathing has gotten progressively worse. Last night patient probably was noted to have significant wheezing and distress while at rest hence was brought into the emergency room for ongoing care. A CT of the chest was done was noted to have atypical finding of fluid overload. At the time of my evaluation patient continues to cough however has been nonproductive in nature Patient does have a history of dysphagia currently has a PEG tube in place is strict nothing by mouth except for ice chips Currently denies having any headaches, blurry vision, chest pain, vomiting, abdominal pain, lower extremity tenderness. Patient main complaint is cough states to have some chills in the recent times 08/21/16 Improved cough Breathing is stable denies having fevers chills nausea vomiting at this time Is tolerating tube feeds via PEG tube 08/22/2016 States to have a cough with greenish sputum production appears to be improved currently on 2 L supplement oxygen denies having any fevers chills episodes of emesis. States to have improved overall. 08/23/16 has yellowish sputum production states to be feeling better cough is improved no fevers, chills, nausea, diarrhea reported cxr reviewed today Objective - Vital Signs Vital signs: Vital Signs Temp 96.6 F L 08/23/16 11:26 Pulse 88 08/23/16 15:44 Resp 16 08/23/16 11:26 BP 118/70 08/23/16 11:26 Pulse Ox 100 08/23/16 11:26 Intake & Output 08/22/16 08/23/16 08/23/16 18:59 06:59 18:59 Output Total 350 Balance -350 Weight 76.5 kg 76.5 kg Output: Urine 350 Other: Voiding Method Diaper Diaper Diaper Incontinent Incontinent Incontinent # Voids 1 1 - Exam Physical exam Gen. appearance oriented 3 in no distress Neck is supple no JVD Lungs improved air movement appreciated no abnormal sounds appreciated. Heart S1-S2 heard regular rate and rhythm no murmurs appreciated Abdomen is soft nontender no organomegaly bowel sounds are intact Neurologically cranial nerves II-12 grossly intact no focal motor or sensory deficits noted Skin no abnormalities appreciated - Labs CBC & Chem 7: 08/23/16 07:10 08/23/16 07:10 Labs: Abnormal Lab Results - Last 24 Hours (Table) 08/22/16 08/22/16 08/23/16 Range/Units 16:55 20:52 06:28 WBC (3.8-10.6) k/uL RBC (4.30-5.90) m/uL Hgb (13.0-17.5) gm/dL Hct (39.0-53.0) % RDW (11.5-15.5) % Neutrophils # (1.3-7.7) k/uL Lymphocytes # (1.0-4.8) k/uL Potassium (3.5-5.1) mmol/L Carbon Dioxide (22-30) mmol/L BUN (9-20) mg/dL Glucose (74-99) mg/dL POC Glucose (mg/dL) 201 H 216 H 194 H (75-99) mg/dL Total Protein (6.3-8.2) g/dL Albumin (3.5-5.0) g/dL 08/23/16 08/23/16 08/23/16 Range/Units 07:10 07:10 11:47 WBC 18.6 H (3.8-10.6) k/uL RBC 3.62 L (4.30-5.90) m/uL Hgb 11.4 L (13.0-17.5) gm/dL Hct 35.0 L (39.0-53.0) % RDW 17.7 H (11.5-15.5) % Neutrophils # 17.1 H (1.3-7.7) k/uL Lymphocytes # 0.5 L (1.0-4.8) k/uL Potassium 3.3 L (3.5-5.1) mmol/L Carbon Dioxide 32 H (22-30) mmol/L BUN 47 H (9-20) mg/dL Glucose 204 H (74-99) mg/dL POC Glucose (mg/dL) 250 H (75-99) mg/dL Total Protein 5.9 L (6.3-8.2) g/dL Albumin 3.0 L (3.5-5.0) g/dL 05/09/17 Range/Units 16:42 WBC (3.8-10.6) k/uL RBC (4.30-5.90) m/uL Hgb (13.0-17.5) gm/dL Hct (39.0-53.0) % RDW (11.5-15.5) % Neutrophils # (1.3-7.7) k/uL Lymphocytes # (1.0-4.8) k/uL Potassium (3.5-5.1) mmol/L Carbon Dioxide (22-30) mmol/L BUN (9-20) mg/dL Glucose (74-99) mg/dL POC Glucose (mg/dL) 170 H (75-99) mg/dL Total Protein (6.3-8.2) g/dL Albumin (3.5-5.0) g/dL Assessment and Plan Plan: #1 sepsis secondary to an aspiration pneumonia #2 acute on chronic hypoxic respiratory failure #3 dysphagia currently maintained on PEG tube feeding #4 CAD #5 persistent atrial fibrillation any correlation with discontinued with history of falls in the past #6 essential hypertension #7 severe persistent asthma Plan continue with Zosyn. Continue current breathing treatments, pulmicort current dose of steroid steroid induced hyperglycemia to be treated with novolog protocol aspiration precautions to be maintained Nothing by mouth except for ice chips dc home rocio day 5 zosyn.
[2016-08-23 21:03] LABS: Glucose,Whole Blood 199 mg/dL (75-99)
[2016-08-24] MEDS: methylPREDNISolone SOD SUCCI 40 MG/ML 1 ML VIAL IV SCH ×3 (00:59→17:10)
[2016-08-24] MEDS: NITROGLYCERIN OINT 1 INCH/GM PACKET TOPICAL SCH ×3 (01:43→13:57)
[2016-08-24] MEDS: PIPERACILLIN-TAZOBACTAM 3.375 GM in DEXTROSE/WATER 1 50ML.BAG IVPB SCH ×2 (01:47→09:08)
[2016-08-24 07:12] LABS: Glucose,Whole Blood 175 mg/dL (75-99)
[2016-08-24 07:21] LABS: Anisocytosis Slight; Basophils % (A) 0 %; CH 30.1; CHCM 30.8; Eosinophils % (A) 0 %; HCT 35.5 % (39.0-53.0); HDW 2.56; HGB 10.7 gm/dL (13.0-17.5); Hypochromasia Moderate; Luc # (Auto) 0.19; Luc % (Auto) 1; Lymphocytes # (A) 0.5 k/uL (1.0-4.8); Lymphocytes % (A) 3 %; MCH 29.6 pg (25.0-35.0); MCHC 30.2 g/dL (31.0-37.0); Macrocytosis Slight; Mean Platelet Volume 7.9; Monocytes # (A) 0.5 k/uL (0-1.0); Monocytes % (A) 3 %; Neutrophils # (A) 15.1 k/uL (1.3-7.7); Neutrophils % (A) 93 %; RBC 3.62 m/uL (4.30-5.90); RDW 17.6 % (11.5-15.5); WBC 16.2 k/uL (3.8-10.6); WBC (Perox) 16.77
[2016-08-24 07:24] VITALS: RESP 16
[2016-08-24 07:34] LABS: ALT 44 U/L (21-72); AST 41 U/L (17-59); Alkaline Phosphatase 89 U/L (38-126); Anion Gap 8 mmol/L; Blood Urea Nitrogen 44 mg/dL (9-20); Calcium 8.4 mg/dL (8.4-10.2); Carbon Dioxide 32 mmol/L (22-30); Chloride 103 mmol/L (98-107); Glucose 142 mg/dL (74-99); Non-African American GFR(MDRD) >60 (>60 ml/min/1.73 sqM); Potassium 3.6 mmol/L (3.5-5.1); Sodium 143 mmol/L (137-145); Total Bilirubin 0.6 mg/dL (0.2-1.3); Total Protein 5.7 g/dL (6.3-8.2)
[2016-08-24] MEDS: BUDESONIDE 0.5 MG/2 ML NEBU INHALATION SCH (07:49)
[2016-08-24] MEDS: IPRATROPIUM-ALBUTEROL 3 ML NEB INHALATION SCH ×3 (07:49→15:33)
--- NOTE | 2016-08-24 07:58 | XR ---
EXAMINATION TYPE: XR chest 1V portable DATE OF EXAM: 08/24/2016 7:34 AM COMPARISON: Prior chest x-ray 23 Aug 2016 HISTORY: Difficulty breathing TECHNIQUE: Single frontal view of the chest is obtained. FINDINGS: Pacemaker is stable. There is no pneumonia, pneumothorax, or pleural effusion evident. Min imal patchy density persists, changes of the left lung base likely representing chronic pleural paren chymal change. IMPRESSION: No acute process.
[2016-08-24] MEDS: INSULIN LISPRO (humaLOG) 300 UNIT/3 ML VIAL SQ SCH ×2 (08:29→12:32)
[2016-08-24] MEDS: MONTELUKAST 10 MG TAB PEG/G-TUBE SCH (08:30)
[2016-08-24] MEDS: HEPARIN SODIUM,PORCINE 5,000 UNIT/ML 1 ML VIAL SQ SCH (08:30)
[2016-08-24] MEDS: LISINOPRIL 2.5 MG TAB PEG/G-TUBE SCH (08:30)
[2016-08-24] MEDS: METOCLOPRAMIDE ORAL SOLN 10 MG/10 ML CUP PEG/G-TUBE SCH ×2 (08:30→12:32)
[2016-08-24] MEDS: ASPIRIN 325 MG TAB PEG/G-TUBE SCH (08:30)
[2016-08-24 11:31] LABS: Glucose,Whole Blood 198 mg/dL (75-99)
[2016-08-24 14:10] VITALS: BP 134/56; PULSE 74; TEMP 98.9
[2016-08-24 17:04] LABS: Glucose,Whole Blood 229 mg/dL (75-99)
--- NOTE | 2016-10-05 19:46 | DS ---
DATE OF ADMISSION: 08/20/2016 DATE OF DISCHARGE: 08/24/2016 DISCHARGE DIAGNOSES: 1. Sepsis secondary to aspiration pneumonia. 2. Acute on chronic hypoxic respiratory failure secondary to pneumonia. 3. Dysphagia, currently maintained on PEG tube feeding. 4. History of coronary artery disease. 5. Persistent atrial fibrillation. Anticoagulation has been discontinued with a history of falls in the past. 6. Essential hypertension. 7. Severe persistent asthma. HOSPITAL COURSE: Mr. Dunn is an 86-year-old male who was brought to the hospital by his niece with complaints of progressive cough that has been nonproductive in nature over the past 2 to 3 weeks. About 3 days ago patient had a severe cough and thereafter he vomited. Over the last 2 days the breathing got better, but patient was brought to the hospital. Patient was noted to have significant wheezing and distress while at rest in the emergency room. CT of the chest was done; noted to have atypical findings and fluid overload. Patient continued to have a non-productive cough. Patient was suspected to have aspiration pneumonia and was started on antibiotics in the form of Zosyn. Patient does have history of dysphagia and currently on PEG tube with strict nothing by mouth except ice chips. Otherwise patient was continued on breathing treatments and steroids for acute asthma exacerbation. Patient did improve clinically and antibiotics would be changed to p.o. Augmentin to complete the course. Otherwise, patient was stable to be discharged home. Patient apparently denied any complaints of chest pain or shortness of breath and was stable for discharge. DISCHARGE PHYSICAL EXAMINATION: An 86-year-old male lying in the bed. Awake, alert, oriented x3. No apparent distress. VITALS: Blood pressure 134/56, pulse 74, respiratory rate 16, temperature afebrile, pulse ox 96% on 2 L nasal cannula. Discharge physical examination done. Discharge medications include: 1. Singulair 10 mg via PEG tube daily. 2. Vitamin C 500 mg via PEG tube daily. 3. DuoNeb 3 mL inhalation q.i.d. p.r.n. 4. Lisinopril 2.5 mg via PEG tube daily. 5. Albuterol inhalation 1 to 2 puffs inhalation q.4 hours p.r.n. for shortness of breath. 6. Aspirin 325 mg via PEG tube daily. 7. Pulmicort 1 puff inhalation ( ) b.i.d. 8. Metoclopramide 5 mg via PEG tube q.i.d. 9. Augmentin 875/125 one tablet via PEG tube q.12 hours for 2 more days. 10. Prednisone tapering dose. Patient will be discharged home with home care services. Follow up with Dr. Donny Fermin in 1 to 2 days. Patient discharged home in stable condition.
== END 2016-08-24 18:14 | disposition home health service (06) | DRG 871 ==
LOC: EC 21:11 → 6SEL 08-20 01:18 → 3SUR 08-24 00:08
PROVIDERS: ADMIT Hospitalist; ATTEND Hospitalist
DX: A41.9 Sepsis, unspecified organism (principal); J69.0 Pneumonitis due to inhalation of food and vomit; J96.21 Acute and chronic respiratory failure with hypoxia; I48.1 Persistent atrial fibrillation; I50.9 Heart failure, unspecified; I11.0 Hypertensive heart disease with heart failure; I48.2 Chronic atrial fibrillation; R13.10 Dysphagia, unspecified; F03.90 Unspecified dementia, unspecified severity, without behavioral disturbance, psychotic disturbance, mood disturbance, and anxiety; F17.210 Nicotine dependence, cigarettes, uncomplicated; I25.10 Atherosclerotic heart disease of native coronary artery without angina pectoris; J44.9 Chronic obstructive pulmonary disease, unspecified; J45.50 Severe persistent asthma, uncomplicated; Z79.82 Long term (current) use of aspirin; Z79.899 Other long term (current) drug therapy; Z86.73 Personal history of transient ischemic attack (TIA), and cerebral infarction without residual deficits; Z91.81 History of falling; Z93.1 Gastrostomy status; Z88.2 Allergy status to sulfonamides
CPT/HCPCS: 36415; 71010; 71275; 80053; 83036; 83605; 83735; 83880; 84484; 85025; 85379; 85610; 85730; 87040; 93005; 94640; 94760; 96365; 96367; 96375; 99285